=== PATIENT | male | born 1965 | race American Indian/Alaskan Native ===

== ENCOUNTER 2020-09-30 03:16 | Inpatient (IN) | payer OTHER ==
--- NOTE | 2020-09-30 03:35 | Event Note ---
Date: 09/30/20 The patient was evaluated in the emergency department for symptoms described in the history of present illness. He/she was evaluated in the context of the global COVID-19 pandemic, which necessitated consideration that the patient might be at risk for infection with the virus that causes COVID-19. Institutional protocols and algorithms that pertain to the evaluation of patients at risk for COVID-19 are in a state of rapid change based on information released by regulatory bodies including the CDC and federal and state organizations. These policies and algorithms were followed during the patient's care in the emergency department. Please note that these policies, procedures and recommendations changed on a rapid basis. The patient is a 55-year-old gentleman with a history of obesity, and CHF, possible hypertension, who reports a cardiac catheterization last year at [facility], which he states was negative for coronary artery disease, presenting to the ER today with EMS as a possible code STEMI. Patient complains of nonradiating central, intermittent chest pain, which is associated with some shortness of breath, but no vomiting or diaphoresis. He rates his pain as a 7 out of 10 at this time. He endorses lower extremity swelling and unintentional weight gain. EMS states he has not been taking his diuretic/CHF medications. EMS gave the patient aspirin in the field. Prehospital EKG shows left bundle branch block. ER EKG shows sinus tachycardia, rate 108 bpm, left bundle branch block, QTC prolonged, no evidence of STEMI in my opinion. In addition, the EKG is negative by Scarbarossa criteria However, EKG is transmitted to our local design project manager, Dr. Nunez, given EMS articulated concern of STEMI. Patient appears quite comfortable at this time. He does not appear to be in significant distress. Dr. Nunez advises that emergent activation of the cardiac catheterization lab is not indicated at this time, and I agree with him. The patient has received 1 round of COVID-19 vaccination, and is due to receive his next vaccine within the next week or so. Patient also appears to have lower extremity edema, suspect decompensated CHF. Place patient on manager monitoring, obtain x-ray, appropriate laboratory studies, treat with as needed nitroglycerin, and anticipate admission to the medical service once initial diagnostics have resulted.
[2020-09-30] MEDS ORDERED: MORPHINE 4 MG/1 ML INJ IV ONE (04:05)
--- NOTE | 2020-09-30 04:11 | Emergency Department Report ---
ED General Adult HPI - General Chief complaint: Dyspnea/Respdistress Stated complaint: My chest hurts, I will coughing, and having difficulty. PUI?: No Time Seen by Provider: 09/30/20 04:01 Source: patient, EMS (Verbal report received from emergency medical services. EMS documentation not available at time of chart dictation ), RN notes reviewed Mode of arrival: Stretcher - History of Present Illness Initial comments: The patient was evaluated in the emergency department for symptoms described in the history of present illness. He/she was evaluated in the context of the global COVID-19 pandemic, which necessitated consideration that the patient might be at risk for infection with the virus that causes COVID-19. Institutional protocols and algorithms that pertain to the evaluation of patients at risk for COVID-19 are in a state of rapid change based on information released by regulatory bodies including the CDC and federal and state organizations. These policies and algorithms were followed during the patient's care in the emergency department. Please note that these policies, procedures and recommendations changed on a rapid basis. The patient is a 55-year-old gentleman, who is not known to myself previously. Past medical history includes medication noncompliance, hypertension, congestive heart failure, unknown ejection fraction, alcohol use. Patient reports having had an unremarkable cardiac catheterization last year [facility], stating that he believes he had normal coronary arteries, but CHF. He reports that secondary to financial and insurance issues, he is not been able to take his diuretics for about a few weeks. He goes to [facility] in [place]. He has been having central chest pain, which does not radiate to the back, arms or neck, denies vomiting and diaphoresis. He has shortness of breath. He has lower extremity swelling. He has received one of his COVID-19 vaccinations. He denies hematemesis and bright red blood per rectum. Symptoms present for a day or so. He denies loss of taste and smell. EMS gave aspirin in the field. EMS states patient hypertensive in the field to the 170s systolic, improved with sublingual nitroglycerin the patient denies a personal/family history of ischemic heart disease, DVT and pulmonary embolism. -: Gradual, hour(s), days(s) Location: chest Radiation: non-radiation Consistency: intermittent Improves with: rest Worsens with: movement - Related Data Allergies Allergy/AdvReac Type Severity Reaction Status Date / Time No Known Allergies Allergy Verified 09/30/20 04:26 ED Review of Systems ROS: Stated complaint: STEMI Other details as noted in HPI Constitutional: denies: fever Eyes: denies: eye discharge ENT: congestion. denies: epistaxis Respiratory: shortness of breath Cardiovascular: chest pain, dyspnea on exertion, edema Gastrointestinal: denies: vomiting, hematemesis, melena, hematochezia Musculoskeletal: denies: back pain Neurological: weakness Hematological/Lymphatic: denies: easy bleeding ED Physical Exam - General Limitations: No Limitations General appearance: alert, anxious, in distress, obese - Head Head exam: Present: atraumatic, normocephalic - Eye Eye exam: Present: normal appearance, EOMI. Absent: nystagmus - ENT ENT exam: Present: normal exam, normal orophraynx, mucous membranes moist, normal external ear exam - Neck Neck exam: Present: normal inspection, full ROM. Absent: tenderness, meningismus - Respiratory Respiratory exam: Present: respiratory distress, rales, accessory muscle use - Cardiovascular Cardiovascular Exam: Present: normal rhythm, tachycardia, normal heart sounds, JVD. Absent: bradycardia, irregular rhythm, systolic murmur, diastolic murmur, rubs, gallop - GI/Abdominal GI/Abdominal exam: Present: soft. Absent: distended, tenderness, guarding, rebound, rigid, pulsatile mass - Rectal Rectal exam: Present: deferred - Extremities Exam Extremities exam: Present: normal inspection, full ROM, pedal edema, other (2+ pulses noted in the bilateral upper and lower extremities. There is no palpable cord. negative Homans sign. Muscular compartments are soft. The pelvis is stable.). Absent: calf tenderness - Back Exam Back exam: Present: normal inspection. Absent: tenderness, CVA tenderness (R), CVA tenderness (L), paraspinal tenderness, vertebral tenderness - Neurological Exam Neurological exam: Present: alert, oriented X3, other (No facial droop. Tongue midline. Extraocular movements intact bilaterally. Facial sensation intact to light touch in V1, V2, V3 distribution bilaterally. 5 and a 5 strength in 4 extremities. Sensation intact to light touch in 4 extremities.). Absent: motor sensory deficit - Psychiatric Psychiatric exam: Present: normal affect, normal mood - Skin Skin exam: Present: warm, dry, intact, normal color. Absent: rash ED Course Vital Signs 09/30/20 09/30/20 09/30/20 03:50 04:13 04:17 Temperature 98.6 F Pulse Rate 106 H 106 H 108 H Respiratory 22 Rate Blood Pressure 155/95 Blood Pressure 158/115 [Right] O2 Sat by Pulse 98 Oximetry - Reevaluation(s) Reevaluation #1: 09/30/20 04:09 Differential diagnosis, including but not limited to: Acute coronary syndrome, costochondritis, pneumonia, congestive heart failure, obesity, pulmonary hypertension, obesity hypoventilation syndrome Assessment and plan: 55-year-old gentleman who is morbidly obese, with evidence of decompensated congestive heart failure, manifest by crackles, rales, JVD, lower extremity swelling, and chest pain. EKG abnormal, without prior for comparison, but not consistent with STEMI. Denies DVT and pulmonary embolism risk factors. We will request prior medical records from [facility]. Place patient on fish culturist, obtain appropriate laboratory studies, x-ray of the chest, treat pain aggressively, admit patient to the medical service once initial diagnostics have resulted. I discussed this plan of care with the patient. He is agreeable to the aforementioned. He does not take erectile dysfunction medication. EMS informed me that patient's family told them that the patient is a heavy drinker. The patient denies recreational drug use to myself. He is not clinically intoxicated at this time. His examination and history are not consistent with withdrawal. 09/30/20 04:54 Troponin negative. proBNP elevated. Liver panel suggest congestive hepatopathy, likely secondary to decompensated congestive heart failure. High-dose Lasix ordered. Pain is improved with morphine and nitroglycerin. Hospital physician, Dr. Charanjit Cano, To admit patient to the medical service. ED Medical Decision Making - Lab Data Result diagrams: 09/30/20 03:44 09/30/20 03:44 Vital Signs 09/30/20 09/30/20 04:13 04:17 Pulse Rate 106 H 108 H Blood Pressure 155/95 Lab Results 09/30/20 09/30/20 09/30/20 Range/Units 03:44 03:44 03:44 WBC 8.6 (4.5-11.0) K/mm3 RBC 4.30 (3.65-5.03) M/mm3 Hgb 12.7 (11.8-15.2) gm/dl Hct 37.7 (35.5-45.6) % MCV 88 (84-94) fl MCH 30 (28-32) pg MCHC 34 (32-34) % RDW 17.3 H (13.2-15.2) % Plt Count 226 (140-440) K/mm3 Lymph % (Auto) 12.2 L (13.4-35.0) % [place] % (Auto) 6.1 (0.0-7.3) % Eos % (Auto) 0.2 (0.0-4.3) % Baso % (Auto) 1.3 (0.0-1.8) % Lymph # (Auto) 1.0 L (1.2-5.4) K/mm3 [place] # (Auto) 0.5 (0.0-0.8) K/mm3 Eos # (Auto) 0.0 (0.0-0.4) K/mm3 Baso # (Auto) 0.1 (0.0-0.1) K/mm3 Seg Neutrophils % 80.2 H (40.0-70.0) % Seg Neutrophils # 6.9 (1.8-7.7) K/mm3 PT 13.5 (12.2-14.9) Sec. INR 0.97 (0.87-1.13) APTT 25.3 (24.2-36.6) Sec. Sodium 142 (137-145) mmol/L Potassium 4.1 (3.6-5.0) mmol/L Chloride 107.0 (98-107) mmol/L Carbon Dioxide 21 L (22-30) mmol/L Anion Gap 18 mmol/L BUN 17 (9-20) mg/dL Creatinine 0.8 (0.8-1.3) mg/dL Estimated GFR > 60 ml/min BUN/Creatinine Ratio 21 % Glucose 104 H (75-100) mg/dL Calcium 9.2 (8.4-10.2) mg/dL Magnesium 2.10 (1.7-2.3) mg/dL Total Bilirubin 0.70 (0.1-1.2) mg/dL AST 54 H (5-40) units/L ALT 65 H (7-56) units/L Alkaline Phosphatase 51 (35-129) units/L Troponin T 0.014 (0.00-0.029) ng/mL NT-Pro-B Natriuret Pep 04920 H (0-900) pg/mL Total Protein 6.8 (6.3-8.2) g/dL Albumin 3.6 L (3.9-5) g/dL Albumin/Globulin Ratio 1.1 % Vital Signs 09/30/20 09/30/20 09/30/20 03:50 04:13 04:17 Temperature 98.6 F Pulse Rate 106 H 106 H 108 H Respiratory 22 Rate Blood Pressure 155/95 Blood Pressure 158/115 [Right] O2 Sat by Pulse 98 Oximetry - EKG Data -: EKG Interpreted by La - EKG Data 09/30/20 04:11 EKG interpreted at 03: 23 Sinus rhythm, tachycardia. Normal axis, QTC 457 ms. Motion artifact. Interventricular conduction delay. Left bundle branch block. Abnormal EKG. Not a STEMI. No prior for comparison. - Radiology Data Radiology results: pending, report reviewed, image reviewed [facility] [address] [place] [address] XRay Report Signed Patient: RAUL HILL MR#: [id number] 3 : 1965 Acct:[id number] Age/Sex: 55 / M ADM Date: 09/30/20 Loc: ED Attending Dr: Ordering Physician: SNEHAL DOE MD Date of Service: 09/30/20 Procedure(s): XR chest 1V ap Accession Number(s): [id number] cc: SNEHAL DOE MD Fluoro Time In Minutes: CHEST 1 VIEW 09/30/2020 4:12 AM INDICATION / CLINICAL INFORMATION: Chest Pain. COMPARISON: None available. FINDINGS: SUPPORT DEVICES: None. HEART / MEDIASTINUM: Moderate cardiomegaly. LUNGS / PLEURA: Mild interstitial edema and tiny bilateral effusions No pneumothorax. ADDITIONAL FI NDINGS: No significant additional findings. IMPRESSION: 1. Mild CHF Signer Name: Paul Lopez MD Signed: 09/30/2020 4:16 AM Workstation Name: [id number] Transcribed By: TL Dictated By: Paul Lopez MD Electronically Authenticated By: Paul Lopez MD Signed Date/Time: 08415 DD/ 5 TD/TT: Critical Care Time: Yes Critical care time in (mins) excluding proc time.: 35 Critical care attestation.: If time is entered above; I have spent that time in minutes in the direct care of this critically ill patient, excluding procedure time. ED Disposition Clinical Impression: Acute congestive heart failure, Acute chest pain, Body mass index 36.0-36.9, adult, Medical non-compliance Disposition: ADMITTED INPATIENT Is pt being admited?: Yes Does the pt Need Aspirin: No (Aspirin given by EMS) Condition: Stable Instructions: Chest Pain (ED) Referrals: PRIMARY CARE,MD [Primary Care Provider] - 3-5 Days Heart Score - HEART Score History: Moderately suspicious EKG: Non-specific Age: 45-65 Risk factors: > 3 risk factors or hx of atherosclerotic disease (Obesity, hypertension, alcoholism, probable obstructive sleep) Troponin: < normal limit HEART Score: 5 - EKG Read Time Time EKG Completed: 03:23 EKG Read Time: 03:23 - Critical Actions Critical Actions: 4-6 pts:12-16.6% risk of adverse cardiac event. Should be admitted
[2020-09-30] MEDS: NITROGLYCERIN 0.4 MG TAB SUBL SL ONE ×2 (04:13→04:17)
--- NOTE | 2020-09-30 04:20 | XRay Report ---
CHEST 1 VIEW 09/30/2020 4:12 AM INDICATION / CLINICAL INFORMATION: Chest Pain. COMPARISON: None available. FINDINGS: SUPPORT DEVICES: None. HEART / MEDIASTINUM: Moderate cardiomegaly. LUNGS / PLEURA: Mild interstitial edema and tiny bilateral effusions No pneumothorax. ADDITIONAL FINDINGS: No significant additional findings. IMPRESSION: 1. Mild CHF Signer Name: Paul Lopez MD Signed: 09/30/2020 4:16 AM Workstation Name: [id number]
[2020-09-30 04:36] LABS: Basophils # (Auto) 0.1 K/mm3 (0.0-0.1); Basophils % (Auto) 1.3 % (0.0-1.8); Eosinophils % (Auto) 0.2 % (0.0-4.3); Hematocrit 37.7 % (35.5-45.6); Hemoglobin 12.7 gm/dl (11.8-15.2); Lymphocytes % (Auto) 12.2 % (13.4-35.0); Mean Corpuscular HGB Conc 34 % (32-34); Mean Corpuscular Volume 88 fl (84-94); Monocytes # (Auto) 0.5 K/mm3 (0.0-0.8); Monocytes % (Auto) 6.1 % (0.0-7.3); Platelet Count 226 K/mm3 (140-440); Red Cell Distribution Width 17.3 % (13.2-15.2)
[2020-09-30 04:47] LABS: INR 0.97 (0.87-1.13); Partial Thromboplastin Time 25.3 Sec. (24.2-36.6)
[2020-09-30 04:53] LABS: Alanine Aminotransferase 65 units/L (7-56); Albumin 3.6 g/dL (3.9-5); BUN/Creatinine Ratio 21; Blood Urea Nitrogen 17 mg/dL (9-20); Calcium 9.2 mg/dL (8.4-10.2); Hemolysis Index 4
[2020-09-30] MEDS ORDERED: FUROSEMIDE 40 MG/4 ML INJ IV ONE (04:57)
[2020-09-30] MEDS ORDERED: NITROGLYCERIN 0.4 MG TAB SUBL SL PRN (05:05)
[2020-09-30] MEDS ORDERED: ACETAMINOPHEN 325 MG TAB PO PRN ×2 (05:05)
[2020-09-30] MEDS ORDERED: ONDANSETRON 4 MG/2 ML INJ IV PRN (05:05)
[2020-09-30] MEDS ORDERED: traMADol 50 MG TAB PO PRN (05:05)
[2020-09-30] MEDS ORDERED: MORPHINE 4 MG/1 ML INJ IV PRN (05:05)
[2020-09-30] MEDS ORDERED: MORPHINE 2 MG/1 ML INJ IV PRN ×2 (05:05)
[2020-09-30] MEDS ORDERED: MAGNESIUM HYDROXIDE (MOM) ORAL LIQD UDC PO PRN (05:05)
--- NOTE | 2020-09-30 05:15 | History and Physical Report ---
History of Present Illness Date of examination: 09/30/20 Date of admission: 09/30/2020 Chief complaint: Chest pain Shortness of breath History of present illness: 55-year-old -[place] male with known history of hypertension and CHF presents to the emergency today complaining of chest pain shortness of breath which has been ongoing for the past few days. Patient admits that he has not been taking his medication because he could no get refills secondary to insurance issues. Chest pain is said to be substernal and has been constant with no radiation. Denies any headache or dizziness, no diaphoresis, no nausea vomiting, no abdominal pain. Patient denies any sick contacts and no recent travel. Denies any contact with anyone with COVID-19. He has had a dose of COVID-19 vaccine and due for second dose in the next few weeks. Patient indicates that he has had cardiac catheterization about a year ago at [facility] with no significant abnormalities detected. En route to the hospital by EMS he was given aspirin with some improvement in his chest pain. Initial blood pressure was said to be in the 170s systolic. Patient states his mother has known history of heart disease namely congestive heart failure. Evaluation in the emergency room today, chest x-ray reveals mild CHF. BNP was greater than 10,000. EKG was a little concerning for left bundle branch block. EKG findings were discussed with the data processing systems project planner on-call by the ER physician. No emergent intervention was required. Patient is being admitted with chest pain and CHF exacerbation. Past History Past Medical History: heart failure, hypertension Past Surgical History: Other (Cardiac catheterization about a year ago) Social history: denies: no significant social history Family history: no significant family history, other (Congestive heart failure in mother) Medications and Allergies Allergies Allergy/AdvReac Type Severity Reaction Status Date / Time No Known Allergies Allergy Verified 09/30/20 04:26 Review of Systems Constitutional: no fever, no chills Ears, nose, mouth and throat: no nasal congestion, no sore throat Cardiovascular: chest pain, no palpitations, no syncope Respiratory: shortness of breath, no cough Gastrointestinal: no abdominal pain, no nausea, no vomiting, no diarrhea Genitourinary Male: no dysuria, no hematuria, no flank pain Musculoskeletal: no neck pain, no low back pain Integumentary: no rash, no pruritis Neurological: no headaches, no confusion Psychiatric: no anxiety, no depression Endocrine: no polyphagia, no polydipsia, no polyuria, no nocturia Exam - Constitutional Vitals: Temp Pulse Resp BP Pulse Ox 98.6 F 108 H 22 155/95 98 09/30/20 03:50 09/30/20 04:17 09/30/20 03:50 09/30/20 04:17 09/30/20 03:50 General appearance: Present: no acute distress, well-nourished, obese - EENT Eyes: Present: PERRL, EOM intact ENT: hearing intact, clear oral mucosa, dentition normal - Neck Neck: Present: supple, normal ROM - Respiratory Respiratory effort: normal Respiratory: bilateral: rales - Cardiovascular Rhythm: regular Heart Sounds: Present: S1 & S2. Absent: gallop, systolic murmur, diastolic murmur, rub, click - Extremities Extremities: no ischemia, pulses intact, pulses symmetrical, normal temperature, normal color, Full ROM Extremity abnormal: edema (2+ bilateral lower extremity edema) Peripheral Pulses: within normal limits - Abdominal General gastrointestinal: Present: soft, non-tender, non-distended, normal bowel sounds. Absent: mass - Integumentary Integumentary: Present: clear, warm, dry, normal turgor. Absent: rash - Musculoskeletal Musculoskeletal: strength equal bilaterally - Psychiatric Psychiatric: appropriate mood/affect, intact judgment & insight, memory intact, cooperative - Neurologic Neurologic: CNII-XII intact, no focal deficits, moves all extremities HEART Score - HEART Score History: Moderately suspicious EKG: Non-specific Age: 45-65 Risk factors: > 3 risk factors or hx of atherosclerotic disease (Obesity, hypertension, alcoholism, probable obstructive sleep) Troponin: Troponin T 0.014 ng/mL (0.00-0.029) 09/30/20 03:44 Troponin: < normal limit HEART Score: 5 - Critical Actions Critical Actions: 4-6 pts:12-16.6% risk of adverse cardiac event. Should be admitted Results - Labs CBC & Chem 7: 09/30/20 03:44 09/30/20 03:44 Labs: Abnormal lab results 09/30/20 09/30/20 Range/Units 03:44 03:44 RDW 17.3 H (13.2-15.2) % Lymph % (Auto) 12.2 L (13.4-35.0) % Lymph # (Auto) 1.0 L (1.2-5.4) K/mm3 Seg Neutrophils % 80.2 H (40.0-70.0) % Carbon Dioxide 21 L (22-30) mmol/L Glucose 104 H (75-100) mg/dL AST 54 H (5-40) units/L ALT 65 H (7-56) units/L NT-Pro-B Natriuret Pep 36116 H (0-900) pg/mL Albumin 3.6 L (3.9-5) g/dL Assessment and Plan - Patient Problems (1) Acute congestive heart failure Current Visit: Yes Status: Acute Plan to address problem: Possibly secondary to medication noncompliance. Patient admitted and placed on telemetry. Started on diuretics. We will monitor daily weights and also monitor inputs and output. Patient will be scheduled for echocardiogram. We will request cardiology evaluation. (2) Acute chest pain Current Visit: Yes Status: Acute Plan to address problem: We will check serial cardiac enzymes. Patient started on daily aspirin. Patient placed on sublingual nitroglycerin and IV morphine as needed for chest pain. Will await further evaluation by cardiology (3) Medical non-compliance Current Visit: Yes Status: Acute Plan to address problem: Compliance with medication is being encouraged. (4) DVT prophylaxis Current Visit: Yes Status: Acute Plan to address problem: Patient placed on subcutaneous heparin. (5) Full code status Current Visit: Yes Status: Acute Plan to address problem: Patient is full code.
[2020-09-30] MEDS: FUROSEMIDE 40 MG/4 ML INJ IV SCH ×2 (06:07→19:31)
[2020-09-30] MEDS: HEPARIN 5,000 UNIT/1 ML VIAL SUB-Q SCH ×3 (06:07→22:01)
[2020-09-30] MEDS ORDERED: REGADENOSON 0.4 MG/5 ML INJ IV ONE ×2 (09:27→09:32)
--- NOTE | 2020-09-30 10:04 | Consultation ---
History of Present Illness Consult date: 09/30/20 Consult reason: congestive heart failure History of present illness: The patient is a 55-year-old man who presented to the hospital yesterday with chest pressure and shortness of breath, was seen in the emergency room, admitted to the hospitalist service. He was evaluated and referred for a stress test evaluation today, Lexiscan stress test was completed, following which cardiology consultation was requested. The patient has a history of dilated cardiomyopathy and systolic heart failure, which is managed by his primary doctors at [facility]. He tells me that last year he underwent cardiac catheterization which demonstrated no significant coronary artery disease, and he was placed on medical therapy for a nonischemic cardiomyopathy. He admits to poor compliance with his medical therapy, and poor compliance with recommended dietary salt restrictions, and he is aware that his current decompensation was the result of his noncompliance. He does not recall his last ejection fraction measurement, and has not had any conversations with his doctors about ICD implantation, but also admits to spotty compliance with outpatient doctor visits. At this time, the patient has mild shortness of breath, up to 2+ bilateral lower extremity edema, clinically in decompensated heart failure. EKG is a sinus rhythm with underlying left bundle branch block. Chest x-ray shows a moderate to severe cardiomegaly, and mild interstitial edema. Past History Past Medical History: heart failure, hypertension Past Surgical History: Other (Cardiac catheterization about a year ago) Social history: denies: no significant social history Family history: no significant family history, other (Congestive heart failure in mother) Medications and Allergies Allergies Allergy/AdvReac Type Severity Reaction Status Date / Time No Known Allergies Allergy Verified 09/30/20 04:26 Active Meds: Active Medications Acetaminophen (Acetaminophen 325 Mg Tab) 650 mg PO Q4H PRN PRN Reason: Pain MILD(1-3)/Fever >100.5/YARBROUGH Aspirin (Aspirin Ec 325 Mg Tab) 325 mg PO QDAY [facility] Furosemide (Furosemide 40 Mg/4 Ml Inj) 40 mg IV BID@0600,1800 [facility] Last Admin: 09/30/20 06:07 Dose: Not Given Documented by: Heparin Sodium (Porcine) (Heparin 5,000 Unit/1 Ml Vial) 5,000 unit SUB-Q Q8HR [facility] Last Admin: 09/30/20 06:07 Dose: Not Given Documented by: Magnesium Hydroxide (Magnesium Hydroxide (Mom) Oral Liqd Udc) 30 ml PO Q4H PRN PRN Reason: Constipation Morphine Sulfate (Morphine 2 Mg/1 Ml Inj) 2 mg IV Q4H PRN PRN Reason: Pain, Moderate (4-6) Morphine Sulfate (Morphine 4 Mg/1 Ml Inj) 4 mg IV Q4H PRN PRN Reason: Pain , Severe (7-10) Morphine Sulfate (Morphine 2 Mg/1 Ml Inj) 2 mg IV Q5MIN PRN PRN Reason: Chest Pain unrelieved by NTG Nitroglycerin (Nitroglycerin 0.4 Mg Tab Subl) 0.4 mg SL Q5M PRN PRN Reason: Chest Pain Ondansetron HCl (Ondansetron 4 Mg/2 Ml Inj) 4 mg IV Q8H PRN PRN Reason: Nausea And Vomiting Sodium Chloride (Sodium Chloride 0.9% 10 Ml Flush Syringe) [address] Sodium Chloride (Sodium Chloride 0.9% 10 Ml Flush Syringe) 10 ml IV PRN PRN PRN Reason: LINE FLUSH Tramadol HCl (Tramadol 50 Mg Tab) 50 mg PO Q6H PRN PRN Reason: Pain, Moderate (4-6) Review of Systems Cardiovascular: chest pain, orthopnea, edema, shortness of breath, no palpitations, no rapid/irregular heart beat, no syncope, no lightheadedness Physical Examination Vital Signs Temp Pulse Resp BP Pulse Ox 98.6 F 106 H 22 158/115 98 09/30/20 03:50 09/30/20 03:50 09/30/20 03:50 09/30/20 03:50 09/30/20 03:50 General appearance: mild distress HEENT: Positive: PERRL Neck: Positive: neck supple Cardiac: Positive: Reg Rate and Rhythm Lungs: Positive: Decreased Breath Sounds Neuro: Positive: Grossly Intact Abdomen: Positive: Soft Male genitourinary: Positive: deferred Skin: Positive: Clear Extremities: Present: +2 Edema Results 09/30/20 03:44 09/30/20 03:44 Cardiac Enzymes 09/30/20 Range/Units 03:44 AST 54 H (5-40) units/L Coagulation 09/30/20 Range/Units 03:44 PT 13.5 (12.2-14.9) Sec. INR 0.97 (0.87-1.13) APTT 25.3 (24.2-36.6) Sec. CBC 09/30/20 Range/Units 03:44 WBC 8.6 (4.5-11.0) K/mm3 RBC 4.30 (3.65-5.03) M/mm3 Hgb 12.7 (11.8-15.2) gm/dl Hct 37.7 (35.5-45.6) % Plt Count 226 (140-440) K/mm3 Lymph # (Auto) 1.0 L (1.2-5.4) K/mm3 Reynolds # (Auto) 0.5 (0.0-0.8) K/mm3 Eos # (Auto) 0.0 (0.0-0.4) K/mm3 Baso # (Auto) 0.1 (0.0-0.1) K/mm3 Comprehensive Metabolic Panel 09/30/20 Range/Units 03:44 Sodium 142 (137-145) mmol/L Potassium 4.1 (3.6-5.0) mmol/L Chloride 107.0 (98-107) mmol/L Carbon Dioxide 21 L (22-30) mmol/L BUN 17 (9-20) mg/dL Creatinine 0.8 (0.8-1.3) mg/dL Glucose 104 H (75-100) mg/dL Calcium 9.2 (8.4-10.2) mg/dL AST 54 H (5-40) units/L ALT 65 H (7-56) units/L Alkaline Phosphatase 51 (35-129) units/L Total Protein 6.8 (6.3-8.2) g/dL Albumin 3.6 L (3.9-5) g/dL EKG interpretations - Telemetry EKG Rhythm: Sinus Rhythm (With left bundle branch block) Assessment and Plan - Patient Problems (1) Acute on chronic systolic heart failure Current Visit: Yes Status: Acute Plan to address problem: This patient's current problem is acute exacerbation of chronic systolic heart failure, with a history of dilated nonischemic cardiomyopathy and noncompliance with medical therapy, recommended dietary salt restrictions, and with routine recommended outpatient doctors visits. He states that he is unable to afford his medications and doctor visits. Recommendations: Echocardiogram for left ventricular function assessment. Aggressive management of acute heart failure, with intravenous diuretics, and intravenous milrinone. Other guideline directed medical therapy including lisinopril, spironolactone, baby aspirin, and addition of carvedilol when heart failure is compensated. Strict compliance with low-salt diet. I would also recommend social service worker consultation to develop strategies for patient assistance with outpatient medical compliance.
--- NOTE | 2020-09-30 10:40 | Progress Note ---
Assessment and Plan Assessment and plan: Acute on chronic systolic heart failure. Chest pain. Nonischemic dilated cardiomyopathy. Medical noncompliance. 09/30/2020. Follow-up echocardiogram to assess left ventricular function. Continue GDMT for heart failure with lisinopril, spironolactone, aspirin and Coreg. Continue IV diuretics/IV milrinone. Cardiology following. Ischemic evaluation per cardiology recommendations History Interval history: No new issues overnight. Hospitalist Physical - Constitutional Vitals: Temp Pulse Resp BP Pulse Ox 98.6 F 103 H 21 150/99 96 09/30/20 03:50 09/30/20 06:31 09/30/20 07:01 09/30/20 07:01 09/30/20 07:01 General appearance: Present: mild distress - EENT Eyes: Present: PERRL, EOM intact ENT: hearing intact, clear oral mucosa, dentition normal - Neck Neck: Present: supple, normal ROM - Respiratory Respiratory effort: normal Respiratory: bilateral: CTA - Cardiovascular Rhythm: regular Heart Sounds: Present: S1 & S2. Absent: gallop, rub - Extremities Extremities: no ischemia, Full ROM Extremity abnormal: edema (3+) - Abdominal General gastrointestinal: soft, non-tender, non-distended, normal bowel sounds - Integumentary Integumentary: Present: clear, warm, dry - Neurologic Neurologic: CNII-XII intact, moves all extremities HEART Score - HEART Score EKG: Non-specific Age: 45-65 Risk factors: > 3 risk factors or hx of atherosclerotic disease (Obesity, hypertension, alcoholism, probable obstructive sleep) Troponin: Troponin T 0.014 ng/mL (0.00-0.029) 09/30/20 03:44 Troponin: < normal limit - Critical Actions Critical Actions: 4-6 pts:12-16.6% risk of adverse cardiac event. Should be admitted Results - Labs CBC & Chem 7: 09/30/20 03:44 09/30/20 03:44 Labs: Laboratory Last Values WBC 8.6 K/mm3 (4.5-11.0) 09/30/20 03:44 RBC 4.30 M/mm3 (3.65-5.03) 09/30/20 03:44 Hgb 12.7 gm/dl (11.8-15.2) 09/30/20 03:44 Hct 37.7 % (35.5-45.6) 09/30/20 03:44 MCV 88 fl (84-94) 09/30/20 03:44 MCH 30 pg (28-32) 09/30/20 03:44 MCHC 34 % (32-34) 09/30/20 03:44 RDW 17.3 % (13.2-15.2) H 09/30/20 03:44 Plt Count 226 K/mm3 (140-440) 09/30/20 03:44 Lymph % (Auto) 12.2 % (13.4-35.0) L 09/30/20 03:44 Grady % (Auto) 6.1 % (0.0-7.3) 09/30/20 03:44 Eos % (Auto) 0.2 % (0.0-4.3) 09/30/20 03:44 Baso % (Auto) 1.3 % (0.0-1.8) 09/30/20 03:44 Lymph # (Auto) 1.0 K/mm3 (1.2-5.4) L 09/30/20 03:44 Grady # (Auto) 0.5 K/mm3 (0.0-0.8) 09/30/20 03:44 Eos # (Auto) 0.0 K/mm3 (0.0-0.4) 09/30/20 03:44 Baso # (Auto) 0.1 K/mm3 (0.0-0.1) 09/30/20 03:44 Seg Neutrophils % 80.2 % (40.0-70.0) H 09/30/20 03:44 Seg Neutrophils # 6.9 K/mm3 (1.8-7.7) 09/30/20 03:44 PT 13.5 Sec. (12.2-14.9) 09/30/20 03:44 INR 0.97 (0.87-1.13) 09/30/20 03:44 APTT 25.3 Sec. (24.2-36.6) 09/30/20 03:44 Sodium 142 mmol/L (137-145) 09/30/20 03:44 Potassium 4.1 mmol/L (3.6-5.0) 09/30/20 03:44 Chloride 107.0 mmol/L (98-107) 09/30/20 03:44 Carbon Dioxide 21 mmol/L (22-30) L 09/30/20 03:44 Anion Gap 18 mmol/L 09/30/20 03:44 BUN 17 mg/dL (9-20) 09/30/20 03:44 Creatinine 0.8 mg/dL (0.8-1.3) 09/30/20 03:44 Estimated GFR > 60 ml/min 09/30/20 03:44 BUN/Creatinine Ratio 21 % 09/30/20 03:44 Glucose 104 mg/dL (75-100) H 09/30/20 03:44 Calcium 9.2 mg/dL (8.4-10.2) 09/30/20 03:44 Magnesium 2.10 mg/dL (1.7-2.3) 09/30/20 03:44 Total Bilirubin 0.70 mg/dL (0.1-1.2) 09/30/20 03:44 AST 54 units/L (5-40) H 09/30/20 03:44 ALT 65 units/L (7-56) H 09/30/20 03:44 Alkaline Phosphatase 51 units/L (35-129) 09/30/20 03:44 Troponin T 0.014 ng/mL (0.00-0.029) 09/30/20 03:44 NT-Pro-B Natriuret Pep 68606 pg/mL (0-900) H 09/30/20 03:44 Total Protein 6.8 g/dL (6.3-8.2) 09/30/20 03:44 Albumin 3.6 g/dL (3.9-5) L 09/30/20 03:44 Albumin/Globulin Ratio 1.1 % 09/30/20 03:44 Active Medications - Current Medications Current Medications: Generic Name Dose Route Start Last Admin Trade Name Freq PRN Reason Stop Dose Admin Acetaminophen 650 mg 09/30/20 05:05 Acetaminophen 325 Mg Tab PO Q4H PRN Pain MILD(1-3)/Fever >100.5/YARBROUGH Aspirin 81 mg 10/01/20 10:00 Aspirin Ec 81 Mg Tab PO QDAY RD Carvedilol 6.25 mg 09/30/20 10:00 Carvedilol 6.25 Mg Tab PO BID RD Furosemide 40 mg 09/30/20 06:00 09/30/20 06:07 Furosemide 40 Mg/4 Ml Inj IV Not Given BID@0600,1800 [facility] Heparin Sodium (Porcine) 5,000 unit 09/30/20 06:00 09/30/20 06:07 Heparin 5,000 Unit/1 Ml Vial SUB-Q Not Given Q8HR [facility] Milrinone Lactate/Dextrose 20 mg in 100 mls @ 13.778 mls/hr 09/30/20 11:00 Milrinone-D5w 20 Mg/100 Ml IV 10/03/20 10:[address] Protocol 0.375 MCG/KG/MIN Lisinopril 10 mg 09/30/20 10:00 Lisinopril 10 Mg Tab PO QDAY [facility] Magnesium Hydroxide 30 ml 09/30/20 05:05 Magnesium Hydroxide (Mom) Oral Liqd Udc PO Q4H PRN Constipation Morphine Sulfate 2 mg 09/30/20 05:05 Morphine 2 Mg/1 Ml Inj IV Q4H PRN Pain, Moderate (4-6) Morphine Sulfate 4 mg 09/30/20 05:05 Morphine 4 Mg/1 Ml Inj IV Q4H PRN Pain , Severe (7-10) Morphine Sulfate 2 mg 09/30/20 05:05 Morphine 2 Mg/1 Ml Inj IV Q5MIN PRN Chest Pain unrelieved by NTG Nitroglycerin 0.4 mg 09/30/20 05:05 Nitroglycerin 0.4 Mg Tab Subl SL Q5M PRN Chest Pain Ondansetron HCl 4 mg 09/30/20 05:05 Ondansetron 4 Mg/2 Ml Inj IV Q8H PRN Nausea And Vomiting Sodium Chloride 10 ml 09/30/20 10:00 Sodium Chloride 0.9% 10 Ml Flush Syringe IV BID RD Sodium Chloride 10 ml 09/30/20 05:05 Sodium Chloride 0.9% 10 Ml Flush Syringe IV PRN PRN LINE FLUSH Spironolactone 25 mg 09/30/20 10:00 Spironolactone 25 Mg Tab PO QDAY [facility] Tramadol HCl 50 mg 09/30/20 05:05 Tramadol 50 Mg Tab PO Q6H PRN Pain, Moderate (4-6)
--- NOTE | 2020-09-30 12:08 | Nuclear Medicine Report ---
APPROVED REPORT Exam: Nuclear Stress Test Indication: Chest pain Ht: 5 ft 11 in Wt: 280 lbs BSA: 2.43 m2 BMI: 39.04 Rhythm: LBBB Stress Test Details Stress Test: Pharmacologic stress testing performed using 0.4 mg of regadenoson per 5 mL given IV over 10 seconds. HR Resting HR: 97 bpm Max HR Achieved: 107 bpm Max Heart Rate (APMHR): 163 bpm Target HR (85% APMHR): 138 bpm % of APMHR: 65 Recovery HR: 102 bpm HR response to stress: Normal HR response to stress BP Resting BP: 132/90 mmHg Max BP: 107/102 mmHg Recovery BP: 142/94 mmHg BP response to stress: Normal blood pressure response to stress. ECG Resting ECG: Sinus Tachycardia, LBBB Stress ECG: Sinus Tachycardia, LBBB ST Change: None Arrhythmia: None Recovery ECG: Sinus Tachycardia, LBBB Recovery ST Change: None Recovery Arrhythmia: VPC Clinical Reason for Termination: Completed protocol Stress Symptoms: None Patient completed pharmacologic stress test, no symptoms of chest pain or shortness of breath, ECG is indeterminate in the presence of a left bundle branch block. Myocardial perfusion images are pending for final test interpretation. NM EXAM: Myocardial Perfusion REST/STRESS Imaging Protocol: Rest Tc-99m/Stress Tc-99m 1 day Resting Data Rest SPECT myocardial perfusion imaging was performed in supine position 45 minutes following the intravenous injection of 10 mCi of Tc-99m Myoview. Time of rest injection: 0700 Pharmacologic Stress Pharmacologic stress test was performed by injecting Regadenoson 0.4 mg IV push followed by the intravenous injection of 28 mCi of Tc-99m Myoview. Time of stress injection: 0900 The images were gated to evaluate regional wall motion and calculate left ventricular ejection fraction. Stress only was performed in the Supine position. Study Data TID = 1.07. Perfusion Wall Motion There is diffuse severe hypokinesis, with left ventricular ejection fraction calculated at 13%. Nuclear Conclusion ECG Findings: negative for ischemia Clinical Findings: negative for ischemia Nuclear Findings: negative for ischemia Left Ventricular Function: abnormal Risk Study: moderate Evidence of severe dilated cardiomyopathy, with multiple fixed defects in the anterior apical wall and the mid and basal inferior cruz. Clinical correlation is recommended, consider multivessel disease with prior infarcts as described. There is minimal to no significant reversibility in the infarct segments.
[2020-09-30] MEDS: ASPIRIN EC 81 MG TAB PO SCH (12:39)
[2020-09-30] MEDS: carvediloL 6.25 MG TAB PO SCH ×2 (13:49→22:00)
[2020-09-30] MEDS: SPIRONOLACTONE 25 MG TAB PO SCH (13:50)
[2020-09-30] MEDS: LISINOPRIL 10 MG TAB PO SCH (13:50)
[2020-09-30] MEDS: MILRINONE-D5W 20 MG/100 ML 20 MG/100 ML BAG IV SCH (16:30)
--- NOTE | 2020-09-30 17:45 | Electrocardiograph Report ---
[facility] Test Date: 2020-09-30 Test Time: 03:23:40 Pat Name: RAUL HILL Department: Room: [place] [address] Gender: M [employer] Examiner: : 1965 Requested By: SNEHAL DOE Order Number: [id number] Reading MD: Lacey Redmond Measurements Intervals [place] Rate: 108 P: 60 UT: 137 QRS: 15 QRSD: 170 T: 175 QT: 408 QTc: 547 Interpretive Statements Sinus tachycardia Left bundle branch block ST elevation secondary to IVCD No previous ECG available for comparison Electronically Signed On 09-30-2020 17:45:33 EDT by Lacey Redmond
[2020-10-01] MEDS: FUROSEMIDE 40 MG/4 ML INJ IV SCH ×2 (05:09→17:18)
[2020-10-01] MEDS: HEPARIN 5,000 UNIT/1 ML VIAL SUB-Q SCH ×3 (05:09→22:45)
[2020-10-01 05:43] LABS: Basophils % (Auto) 0.3 % (0.0-1.8); Eosinophils % (Auto) 0.7 % (0.0-4.3); Hematocrit 36.8 % (35.5-45.6); Hemoglobin 12.1 gm/dl (11.8-15.2); Lymphocytes % (Auto) 19.7 % (13.4-35.0); Mean Corpuscular HGB Conc 33 % (32-34); Mean Corpuscular Volume 90 fl (84-94); Monocytes # (Auto) 0.6 K/mm3 (0.0-0.8); Monocytes % (Auto) 12.8 % (0.0-7.3); Platelet Count 167 K/mm3 (140-440); Red Blood Count 4.11 M/mm3 (3.65-5.03); Red Cell Distribution Width 17.2 % (13.2-15.2)
[2020-10-01 06:00] LABS: BUN/Creatinine Ratio 26; Blood Urea Nitrogen 21 mg/dL (9-20); Calcium 8.6 mg/dL (8.4-10.2); Hemolysis Index 22
[2020-10-01] MEDS: MILRINONE-D5W 20 MG/100 ML 20 MG/100 ML BAG IV SCH ×3 (07:24→20:35)
--- NOTE | 2020-10-01 08:45 | Progress Note ---
Assessment and Plan Assessment and plan: Acute on chronic combined systolic and diastolic heart failure. EF 15 to 20% Severe pulmonary hypertension. RVSP 65-70 mmHg Acute hypoxic respiratory failure. Etiology secondary to above Nonischemic dilated cardiomyopathy. Medical noncompliance. 09/30/2020. Follow-up echocardiogram to assess left ventricular function. Continue GDMT for heart failure with lisinopril, spironolactone, aspirin and Coreg. Continue IV diuretics/IV milrinone. Cardiology following. Ischemic evaluation per cardiology recommendations 10/01/2020. Echocardiogram revealed left ventricular dilatation with ventricular systolic function severely decreased. Mild to moderate concentric left ventricular hypertrophy with EF of 15 to 20%. The patient also has severe pulmonary hypertension with RVSP 65-70 mmHg. Continue aspirin, Coreg, Lasix 40 mg IV twice daily, Zestril and milrinone per cardiology recommendations. Continue O2 supplementation to maintain sats greater than 92% History Interval history: No new issues overnight. Hospitalist Physical - Constitutional Vitals: Temp Pulse Resp BP Pulse Ox 98.3 F 90 20 124/83 98 10/01/20 05:32 10/01/20 05:32 10/01/20 05:32 10/01/20 05:32 10/01/20 05:32 General appearance: Present: mild distress - EENT Eyes: Present: PERRL, EOM intact ENT: hearing intact, clear oral mucosa, dentition normal - Neck Neck: Present: supple, normal ROM - Respiratory Respiratory effort: normal Respiratory: bilateral: CTA - Cardiovascular Rhythm: regular Heart Sounds: Present: S1 & S2. Absent: gallop, rub - Extremities Extremities: no ischemia, No edema, Full ROM - Abdominal General gastrointestinal: soft, non-tender, non-distended, normal bowel sounds - Integumentary Integumentary: Present: clear, warm, dry - Neurologic Neurologic: CNII-XII intact, moves all extremities HEART Score - HEART Score EKG: Non-specific Age: 45-65 Risk factors: > 3 risk factors or hx of atherosclerotic disease (Obesity, hypertension, alcoholism, probable obstructive sleep) Troponin: Troponin T < 0.010 ng/mL (0.00-0.029) 09/30/20 11:41 Troponin: < normal limit - Critical Actions Critical Actions: 4-6 pts:12-16.6% risk of adverse cardiac event. Should be admitted Results - Labs CBC & Chem 7: 10/01/20 04:35 10/01/20 04:35 Labs: Laboratory Last Values WBC 5.0 K/mm3 (4.5-11.0) 10/01/20 04:35 RBC 4.11 M/mm3 (3.65-5.03) 10/01/20 04:35 Hgb 12.1 gm/dl (11.8-15.2) 10/01/20 04:35 Hct 36.8 % (35.5-45.6) 10/01/20 04:35 MCV 90 fl (84-94) 10/01/20 04:35 MCH 30 pg (28-32) 10/01/20 04:35 MCHC 33 % (32-34) 10/01/20 04:35 RDW 17.2 % (13.2-15.2) H 10/01/20 04:35 Plt Count 167 K/mm3 (140-440) 10/01/20 04:35 Lymph % (Auto) 19.7 % (13.4-35.0) 10/01/20 04:35 Moore % (Auto) 12.8 % (0.0-7.3) H 10/01/20 04:35 Eos % (Auto) 0.7 % (0.0-4.3) 10/01/20 04:35 Baso % (Auto) 0.3 % (0.0-1.8) 10/01/20 04:35 Lymph # (Auto) 1.0 K/mm3 (1.2-5.4) L 10/01/20 04:35 Moore # (Auto) 0.6 K/mm3 (0.0-0.8) 10/01/20 04:35 Eos # (Auto) 0.0 K/mm3 (0.0-0.4) 10/01/20 04:35 Baso # (Auto) 0.0 K/mm3 (0.0-0.1) 10/01/20 04:35 Seg Neutrophils % 66.5 % (40.0-70.0) 10/01/20 04:35 Seg Neutrophils # 3.3 K/mm3 (1.8-7.7) 10/01/20 04:35 PT 13.5 Sec. (12.2-14.9) 09/30/20 03:44 INR 0.97 (0.87-1.13) 09/30/20 03:44 APTT 25.3 Sec. (24.2-36.6) 09/30/20 03:44 Sodium 140 mmol/L (137-145) 10/01/20 04:35 Potassium 3.7 mmol/L (3.6-5.0) 10/01/20 04:35 Chloride 101.5 mmol/L (98-107) 10/01/20 04:35 Carbon Dioxide 26 mmol/L (22-30) 10/01/20 04:35 Anion Gap 16 mmol/L 10/01/20 04:35 BUN 21 mg/dL (9-20) H 10/01/20 04:35 Creatinine 0.8 mg/dL (0.8-1.3) 10/01/20 04:35 Estimated GFR > 60 ml/min 10/01/20 04:35 BUN/Creatinine Ratio 26 % 10/01/20 04:35 Glucose 91 mg/dL (75-100) 10/01/20 04:35 Calcium 8.6 mg/dL (8.4-10.2) 10/01/20 04:35 Magnesium 2.10 mg/dL (1.7-2.3) 09/30/20 03:44 Total Bilirubin 0.70 mg/dL (0.1-1.2) 09/30/20 03:44 AST 54 units/L (5-40) H 09/30/20 03:44 ALT 65 units/L (7-56) H 09/30/20 03:44 Alkaline Phosphatase 51 units/L (35-129) 09/30/20 03:44 Troponin T < 0.010 ng/mL (0.00-0.029) 09/30/20 11:41 NT-Pro-B Natriuret Pep 12021 pg/mL (0-900) H 09/30/20 03:44 Total Protein 6.8 g/dL (6.3-8.2) 09/30/20 03:44 Albumin 3.6 g/dL (3.9-5) L 09/30/20 03:44 Albumin/Globulin Ratio 1.1 % 09/30/20 03:44 Cotton/IV: Voiding Method Toilet Active Medications - Current Medications Current Medications: Generic Name Dose Route Start Last Admin Trade Name Freq PRN Reason Stop Dose Admin Acetaminophen 650 mg 09/30/20 05:05 Acetaminophen 325 Mg Tab PO Q4H PRN Pain MILD(1-3)/Fever >100.5/YARBROUGH Aspirin 81 mg 09/30/20 11:00 09/30/20 12:39 Aspirin Ec 81 Mg Tab PO Not Given QDAY RD Carvedilol 6.25 mg 09/30/20 10:00 09/30/20 22:00 Carvedilol 6.25 Mg Tab PO 6.[address] Administration Furosemide 40 mg 09/30/20 06:00 10/01/20 05:09 Furosemide 40 Mg/4 Ml Inj IV 40 mg BID@0600,1800 RD Administration Heparin Sodium (Porcine) 5,000 unit 09/30/20 06:00 10/01/20 05:09 Heparin 5,000 Unit/1 Ml Vial SUB-Q 5,[address] Administration Milrinone Lactate/Dextrose 20 mg in 100 mls @ 13.778 mls/hr 09/30/20 12:00 10/01/20 07:24 Milrinone-D5w 20 Mg/100 Ml IV 10/03/20 11:59 0.375 mcg/kg/min DIRECT RD 13.778 mls/hr Administration Protocol 0.375 MCG/KG/MIN Lisinopril 10 mg 09/30/20 10:00 09/30/20 13:50 Lisinopril 10 Mg Tab PO [address] Administration Magnesium Hydroxide 30 ml 09/30/20 05:05 Magnesium Hydroxide (Mom) Oral Liqd Udc PO Q4H PRN Constipation Morphine Sulfate 2 mg 09/30/20 05:05 Morphine 2 Mg/1 Ml Inj IV Q4H PRN Pain, Moderate (4-6) Morphine Sulfate 4 mg 09/30/20 05:05 09/30/20 07:50 Morphine 4 Mg/1 Ml Inj IV 4 mg Q4H PRN Administration Pain , Severe (7-10) Morphine Sulfate 2 mg 09/30/20 05:05 Morphine 2 Mg/1 Ml Inj IV Q5MIN PRN Chest Pain unrelieved by NTG Nitroglycerin 0.4 mg 09/30/20 05:05 Nitroglycerin 0.4 Mg Tab Subl SL Q5M PRN Chest Pain Ondansetron HCl 4 mg 09/30/20 05:05 Ondansetron 4 Mg/2 Ml Inj IV Q8H PRN Nausea And Vomiting Sodium Chloride 10 ml 09/30/20 10:00 09/30/20 22:01 Sodium Chloride 0.9% 10 Ml Flush Syringe IV [address] Administration Sodium Chloride 10 ml 09/30/20 05:05 Sodium Chloride 0.9% 10 Ml Flush Syringe IV PRN PRN LINE FLUSH Spironolactone 25 mg 09/30/20 10:00 09/30/20 13:50 Spironolactone 25 Mg Tab PO [address] Administration Tramadol HCl 50 mg 09/30/20 05:05 Tramadol 50 Mg Tab PO Q6H PRN Pain, Moderate (4-6)
--- NOTE | 2020-10-01 09:14 | Progress Note ---
Assessment and Plan Chest pain, atypical Acute systolic heart failure Hx of dilated cardiomyopathy, nonischemic follows with [facility] LVEF 15-20% by echo this admission. [facility] 07/2019: angiographically normal coronary arteries, EF 20-25%. Left bundle branch block Check weight daily; strict I's and O's. Advised low sodium diet and fluid restriction. Continue aggressive medical therapy for systolic heart failure. Subjective Date of service: 10/01/20 Interval history: IV milrinone continues. BP is stable. Pt reports he breathing is improving. No cardiac events seen on telemetry. Objective Vital Signs Temp Pulse Resp BP BP Pulse Ox 10/01/20 05:32 98.3 F 90 20 124/83 98 10/01/20 05:00 80 10/01/20 00:39 97.6 F 90 18 97/46 97 09/30/20 22:00 111 H 147/89 09/30/20 21:31 96 09/30/20 21:00 111 H 09/30/20 20:52 98.2 F 92 H 20 147/89 96 09/30/20 20:20 137/91 99 09/30/20 20:13 98 F 09/30/20 20:01 137/91 89 09/30/20 20:00 96 09/30/20 19:01 90 18 147/88 95 09/30/20 15:01 99 H 16 147/88 99 09/30/20 13:50 98 H 145/97 09/30/20 13:49 98 H 145/97 09/30/20 13:40 98.1 F 100 H 22 145/97 98 09/30/20 13:35 150/99 99 09/30/20 09:47 143/90 09/30/20 09:46 142/94 09/30/20 09:45 145/90 09/30/20 09:44 142/95 09/30/20 09:42 146/97 09/30/20 09:41 144/96 09/30/20 09:40 149/94 09/30/20 09:38 145/98 09/30/20 09:14 147/93 - Physical Examination General: No Apparent Distress HEENT: Positive: PERRL Neck: Positive: neck supple Cardiac: Positive: Reg Rate and Rhythm Lungs: Positive: Decreased Breath Sounds Neuro: Positive: Grossly Intact Abdomen: Positive: Soft Extremities: Present: +2 Edema - Labs and Meds CBC 10/01/20 Range/Units 04:35 WBC 5.0 (4.5-11.0) K/mm3 RBC 4.11 (3.65-5.03) M/mm3 Hgb 12.1 (11.8-15.2) gm/dl Hct 36.8 (35.5-45.6) % Plt Count 167 (140-440) K/mm3 Lymph # (Auto) 1.0 L (1.2-5.4) K/mm3 [place] # (Auto) 0.6 (0.0-0.8) K/mm3 Eos # (Auto) 0.0 (0.0-0.4) K/mm3 Baso # (Auto) 0.0 (0.0-0.1) K/mm3 Comprehensive Metabolic Panel 10/01/20 Range/Units 04:35 Sodium 140 (137-145) mmol/L Potassium 3.7 (3.6-5.0) mmol/L Chloride 101.5 (98-107) mmol/L Carbon Dioxide 26 (22-30) mmol/L BUN 21 H (9-20) mg/dL Creatinine 0.8 (0.8-1.3) mg/dL Glucose 91 (75-100) mg/dL Calcium 8.6 (8.4-10.2) mg/dL
[2020-10-01] MEDS ORDERED: ASPIRIN EC 325 MG TAB PO SCH (10:00)
[2020-10-01] MEDS: LISINOPRIL 10 MG TAB PO SCH (11:26)
[2020-10-01] MEDS: ASPIRIN EC 81 MG TAB PO SCH (11:26)
[2020-10-01] MEDS: SPIRONOLACTONE 25 MG TAB PO SCH (11:26)
[2020-10-01] MEDS: carvediloL 6.25 MG TAB PO SCH ×2 (11:26→22:45)
--- NOTE | 2020-10-01 13:25 | Electrocardiograph Report ---
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
--- NOTE | 2020-10-01 13:29 | Electrocardiograph Report ---
[facility] Test Date: 2020-10-01 Test Time: 11:17:19 Pat Name: RAUL HILL Department: Room: A471 1 Gender: M Deck Scaler: KEL : 1965 Requested By: SNEHAL DOE Order Number: [id number] Reading MD: Lacey Redmond Measurements Intervals Rigby Rate: 89 P: 41 MS: 146 QRS: 25 QRSD: 172 T: 233 QT: 445 QTc: 543 Interpretive Statements Sinus rhythm Probable left atrial enlargement Left bundle branch block ST elevation secondary to IVCD Compared to ECG 10/01/2020 08:03:48 No significant changes Electronically Signed On 10-01-2020 13:28:33 EDT by Lacey Redmond
[2020-10-02] MEDS: MILRINONE-D5W 20 MG/100 ML 20 MG/100 ML BAG IV SCH ×3 (04:47→18:25)
[2020-10-02] MEDS: FUROSEMIDE 40 MG/4 ML INJ IV SCH ×2 (05:42→18:18)
[2020-10-02] MEDS: HEPARIN 5,000 UNIT/1 ML VIAL SUB-Q SCH ×3 (05:42→21:32)
--- NOTE | 2020-10-02 09:27 | Progress Note ---
<TANNERTJLINNEA - Last Filed: 10/02/20 09:25> Assessment and Plan Chest pain, atypical Acute systolic heart failure Hx of dilated cardiomyopathy, nonischemic follows with [facility] LVEF 15-20% by echo this admission. [facility] 07/2019: angiographically normal coronary arteries, EF 20-25%. Left bundle branch block Daily weight; strict I's and O's. Advised low sodium diet and fluid restriction. Continue aggressive medical therapy for systolic heart failure with IV milrinone for another 24 hours. Subjective Date of service: 10/02/20 Interval history: IV milrinone continues. BP is stable. Reports he is diuresing well. Objective Vital Signs Temp Pulse Resp Resp BP BP Pulse Ox 10/02/20 08:30 96 10/02/20 04:37 98.0 F 79 18 124/77 96 10/01/20 23:14 97.8 F 82 18 101/65 95 10/01/20 22:45 91 H 115/62 10/01/20 22:00 94 H 20 96 10/01/20 20:25 100 10/01/20 20:23 98.9 F 91 H 18 115/62 97 10/01/20 17:29 117/76 10/01/20 16:31 98.1 F 87 18 86/48 97 10/01/20 15:06 96 10/01/20 11:56 97.9 F 88 18 117/61 97 10/01/20 10:00 82 96 - Physical Examination General: No Apparent Distress HEENT: Positive: PERRL Neck: Positive: neck supple Cardiac: Positive: Reg Rate and Rhythm Lungs: Positive: Decreased Breath Sounds Neuro: Positive: Grossly Intact Abdomen: Positive: Soft Skin: Positive: Clear Extremities: Present: +1 Edema <SIOMARA SY - Last Filed: 10/07/20 07:28> Subjective Interval history: I SAW THIS PT & AGREE WITH THE Dx & Tx PLAN.
[2020-10-02] MEDS: ASPIRIN EC 81 MG TAB PO SCH (11:15)
[2020-10-02] MEDS: SPIRONOLACTONE 25 MG TAB PO SCH (11:16)
[2020-10-02] MEDS: LISINOPRIL 10 MG TAB PO SCH (11:16)
[2020-10-02] MEDS: carvediloL 6.25 MG TAB PO SCH ×2 (11:16→21:32)
--- NOTE | 2020-10-02 11:18 | Progress Note ---
Assessment and Plan Assessment and plan: Acute on chronic combined systolic and diastolic heart failure. EF 15 to 20% Severe pulmonary hypertension. RVSP 65-70 mmHg Acute hypoxic respiratory failure. Etiology secondary to above Nonischemic dilated cardiomyopathy. Medical noncompliance. 09/30/2020. Follow-up echocardiogram to assess left ventricular function. Continue GDMT for heart failure with lisinopril, spironolactone, aspirin and Coreg. Continue IV diuretics/IV milrinone. Cardiology following. Ischemic evaluation per cardiology recommendations 10/01/2020. Echocardiogram revealed left ventricular dilatation with ventricular systolic function severely decreased. Mild to moderate concentric left ventricular hypertrophy with EF of 15 to 20%. The patient also has severe pulmonary hypertension with RVSP 65-70 mmHg. Continue aspirin, Coreg, Lasix 40 mg IV twice daily, Zestril and milrinone per cardiology recommendations. Continue O2 supplementation to maintain sats greater than 92% 10/02/2020. Cardiology with plans to continue aggressive medical therapy with IV milrinone for another 24 hours. Continue low-sodium diet and fluid restriction. Daily weight. strict I's and O's. LVEF 15-20% by echo this admission. History Interval history: No new issues overnight. Hospitalist Physical - Constitutional Vitals: Temp Pulse Resp BP Pulse Ox 98.0 F 79 18 124/77 96 10/02/20 04:37 10/02/20 04:37 10/02/20 04:37 10/02/20 04:37 10/02/20 08:30 General appearance: Present: no acute distress - EENT Eyes: Present: PERRL, EOM intact ENT: hearing intact, clear oral mucosa, dentition normal - Neck Neck: Present: supple, normal ROM - Respiratory Respiratory effort: normal Respiratory: bilateral: CTA - Cardiovascular Rhythm: regular Heart Sounds: Present: S1 & S2. Absent: gallop, rub - Extremities Extremities: no ischemia, No edema, Full ROM - Abdominal General gastrointestinal: soft, non-tender, non-distended, normal bowel sounds - Integumentary Integumentary: Present: clear, warm, dry - Neurologic Neurologic: CNII-XII intact, moves all extremities HEART Score - HEART Score EKG: Non-specific Age: 45-65 Risk factors: > 3 risk factors or hx of atherosclerotic disease (Obesity, hypertension, alcoholism, probable obstructive sleep) Troponin: Troponin T < 0.010 ng/mL (0.00-0.029) 09/30/20 11:41 Troponin: < normal limit - Critical Actions Critical Actions: 4-6 pts:12-16.6% risk of adverse cardiac event. Should be admitted Results - Labs CBC & Chem 7: 10/01/20 04:35 10/01/20 04:35 Labs: Laboratory Last Values WBC 5.0 K/mm3 (4.5-11.0) 10/01/20 04:35 RBC 4.11 M/mm3 (3.65-5.03) 10/01/20 04:35 Hgb 12.1 gm/dl (11.8-15.2) 10/01/20 04:35 Hct 36.8 % (35.5-45.6) 10/01/20 04:35 MCV 90 fl (84-94) 10/01/20 04:35 MCH 30 pg (28-32) 10/01/20 04:35 MCHC 33 % (32-34) 10/01/20 04:35 RDW 17.2 % (13.2-15.2) H 10/01/20 04:35 Plt Count 167 K/mm3 (140-440) 10/01/20 04:35 Lymph % (Auto) 19.7 % (13.4-35.0) 10/01/20 04:35 Kerr % (Auto) 12.8 % (0.0-7.3) H 10/01/20 04:35 Eos % (Auto) 0.7 % (0.0-4.3) 10/01/20 04:35 Baso % (Auto) 0.3 % (0.0-1.8) 10/01/20 04:35 Lymph # (Auto) 1.0 K/mm3 (1.2-5.4) L 10/01/20 04:35 Kerr # (Auto) 0.6 K/mm3 (0.0-0.8) 10/01/20 04:35 Eos # (Auto) 0.0 K/mm3 (0.0-0.4) 10/01/20 04:35 Baso # (Auto) 0.0 K/mm3 (0.0-0.1) 10/01/20 04:35 Seg Neutrophils % 66.5 % (40.0-70.0) 10/01/20 04:35 Seg Neutrophils # 3.3 K/mm3 (1.8-7.7) 10/01/20 04:35 PT 13.5 Sec. (12.2-14.9) 09/30/20 03:44 INR 0.97 (0.87-1.13) 09/30/20 03:44 APTT 25.3 Sec. (24.2-36.6) 09/30/20 03:44 Sodium 140 mmol/L (137-145) 10/01/20 04:35 Potassium 3.7 mmol/L (3.6-5.0) 10/01/20 04:35 Chloride 101.5 mmol/L (98-107) 10/01/20 04:35 Carbon Dioxide 26 mmol/L (22-30) 10/01/20 04:35 Anion Gap 16 mmol/L 10/01/20 04:35 BUN 21 mg/dL (9-20) H 10/01/20 04:35 Creatinine 0.8 mg/dL (0.8-1.3) 10/01/20 04:35 Estimated GFR > 60 ml/min 10/01/20 04:35 BUN/Creatinine Ratio 26 % 10/01/20 04:35 Glucose 91 mg/dL (75-100) 10/01/20 04:35 Calcium 8.6 mg/dL (8.4-10.2) 10/01/20 04:35 Magnesium 2.10 mg/dL (1.7-2.3) 09/30/20 03:44 Total Bilirubin 0.70 mg/dL (0.1-1.2) 09/30/20 03:44 AST 54 units/L (5-40) H 09/30/20 03:44 ALT 65 units/L (7-56) H 09/30/20 03:44 Alkaline Phosphatase 51 units/L (35-129) 09/30/20 03:44 Troponin T < 0.010 ng/mL (0.00-0.029) 09/30/20 11:41 NT-Pro-B Natriuret Pep 98222 pg/mL (0-900) H 09/30/20 03:44 Total Protein 6.8 g/dL (6.3-8.2) 09/30/20 03:44 Albumin 3.6 g/dL (3.9-5) L 09/30/20 03:44 Albumin/Globulin Ratio 1.1 % 09/30/20 03:44 Cotton/IV: Voiding Method Urinal Active Medications - Current Medications Current Medications: Generic Name Dose Route Start Last Admin Trade Name Freq PRN Reason Stop Dose Admin Acetaminophen 650 mg 09/30/20 05:05 Acetaminophen 325 Mg Tab PO Q4H PRN Pain MILD(1-3)/Fever >100.5/YARBROUGH Aspirin 81 mg 09/30/20 11:00 10/01/20 11:26 Aspirin Ec 81 Mg Tab PO [address] Administration Carvedilol 6.25 mg 09/30/20 10:00 10/01/20 22:45 Carvedilol 6.25 Mg Tab PO 6.[address] Administration Furosemide 40 mg 09/30/20 06:00 10/02/20 05:42 Furosemide 40 Mg/4 Ml Inj IV 40 mg BID@0600,1800 RD Administration Heparin Sodium (Porcine) 5,000 unit 09/30/20 06:00 10/02/20 05:42 Heparin 5,000 Unit/1 Ml Vial SUB-Q 5,[address] Administration Milrinone Lactate/Dextrose 20 mg in 100 mls @ 13.778 mls/hr 09/30/20 12:00 10/02/20 04:47 Milrinone-D5w 20 Mg/100 Ml IV 10/03/20 11:59 0.375 mcg/kg/min DIRECT RD 13.778 mls/hr Administration Protocol 0.375 MCG/KG/MIN Lisinopril 10 mg 09/30/20 10:00 10/01/20 11:26 Lisinopril 10 Mg Tab PO [address] Administration Magnesium Hydroxide 30 ml 09/30/20 05:05 Magnesium Hydroxide (Mom) Oral Liqd Udc PO Q4H PRN Constipation Morphine Sulfate 2 mg 09/30/20 05:05 10/01/20 20:35 Morphine 2 Mg/1 Ml Inj IV 2 mg Q4H PRN Administration Pain, Moderate (4-6) Morphine Sulfate 4 mg 09/30/20 05:05 09/30/20 07:50 Morphine 4 Mg/1 Ml Inj IV 4 mg Q4H PRN Administration Pain , Severe (7-10) Morphine Sulfate 2 mg 09/30/20 05:05 Morphine 2 Mg/1 Ml Inj IV Q5MIN PRN Chest Pain unrelieved by NTG Nitroglycerin 0.4 mg 09/30/20 05:05 Nitroglycerin 0.4 Mg Tab Subl SL Q5M PRN Chest Pain Ondansetron HCl 4 mg 09/30/20 05:05 Ondansetron 4 Mg/2 Ml Inj IV Q8H PRN Nausea And Vomiting Sodium Chloride 10 ml 09/30/20 10:00 10/02/20 08:00 Sodium Chloride 0.9% 10 Ml Flush Syringe IV Not Given BID RD Sodium Chloride 10 ml 09/30/20 05:05 Sodium Chloride 0.9% 10 Ml Flush Syringe IV PRN PRN LINE FLUSH Spironolactone 25 mg 09/30/20 10:00 10/01/20 11:26 Spironolactone 25 Mg Tab PO [address] Administration Tramadol HCl 50 mg 09/30/20 05:05 Tramadol 50 Mg Tab PO Q6H PRN Pain, Moderate (4-6)
[2020-10-03] MEDS: FUROSEMIDE 40 MG/4 ML INJ IV SCH ×2 (05:08→18:49)
[2020-10-03] MEDS: MILRINONE-D5W 20 MG/100 ML 20 MG/100 ML BAG IV SCH (05:08)
[2020-10-03] MEDS: HEPARIN 5,000 UNIT/1 ML VIAL SUB-Q SCH ×3 (05:08→22:55)
--- NOTE | 2020-10-03 09:35 | Progress Note ---
Assessment and Plan Assessment and plan: Acute on chronic combined systolic and diastolic heart failure. EF 15 to 20% Severe pulmonary hypertension. RVSP 65-70 mmHg Acute hypoxic respiratory failure. Etiology secondary to above Nonischemic dilated cardiomyopathy. Medical noncompliance. 09/30/2020. Follow-up echocardiogram to assess left ventricular function. Continue GDMT for heart failure with lisinopril, spironolactone, aspirin and Coreg. Continue IV diuretics/IV milrinone. Cardiology following. Ischemic evaluation per cardiology recommendations 10/01/2020. Echocardiogram revealed left ventricular dilatation with ventricular systolic function severely decreased. Mild to moderate concentric left ventricular hypertrophy with EF of 15 to 20%. The patient also has severe pulmonary hypertension with RVSP 65-70 mmHg. Continue aspirin, Coreg, Lasix 40 mg IV twice daily, Zestril and milrinone per cardiology recommendations. Continue O2 supplementation to maintain sats greater than 92% 10/02/2020. Cardiology with plans to continue aggressive medical therapy with IV milrinone for another 24 hours. Continue low-sodium diet and fluid restriction. Daily weight. strict I's and O's. LVEF 15-20% by echo this admission. 10/03/2020. Continue aggressive medical therapy with IV milrinone per cardiology recommendations. Continue low-sodium diet and fluid restriction. Daily weight. strict I's and O's. LVEF 15-20% by echo this admission. History Interval history: No new issues overnight. Hospitalist Physical - Constitutional Vitals: Temp Pulse Resp BP Pulse Ox 98.1 F 80 18 109/63 96 10/03/20 04:31 10/03/20 09:09 10/03/20 04:31 10/03/20 04:31 10/03/20 09:09 General appearance: Present: no acute distress - EENT Eyes: Present: PERRL, EOM intact ENT: hearing intact, clear oral mucosa, dentition normal - Neck Neck: Present: supple, normal ROM - Respiratory Respiratory effort: normal Respiratory: bilateral: CTA - Cardiovascular Rhythm: regular Heart Sounds: Present: S1 & S2. Absent: gallop, rub - Extremities Extremities: no ischemia, No edema, Full ROM - Abdominal General gastrointestinal: soft, non-tender, non-distended, normal bowel sounds - Integumentary Integumentary: Present: clear, warm, dry - Neurologic Neurologic: CNII-XII intact, moves all extremities HEART Score - HEART Score EKG: Non-specific Age: 45-65 Risk factors: > 3 risk factors or hx of atherosclerotic disease (Obesity, hypertension, alcoholism, probable obstructive sleep) Troponin: Troponin T < 0.010 ng/mL (0.00-0.029) 09/30/20 11:41 Troponin: < normal limit - Critical Actions Critical Actions: 4-6 pts:12-16.6% risk of adverse cardiac event. Should be admitted Results - Labs CBC & Chem 7: 10/01/20 04:35 10/01/20 04:35 Labs: Laboratory Last Values WBC 5.0 K/mm3 (4.5-11.0) 10/01/20 04:35 RBC 4.11 M/mm3 (3.65-5.03) 10/01/20 04:35 Hgb 12.1 gm/dl (11.8-15.2) 10/01/20 04:35 Hct 36.8 % (35.5-45.6) 10/01/20 04:35 MCV 90 fl (84-94) 10/01/20 04:35 MCH 30 pg (28-32) 10/01/20 04:35 MCHC 33 % (32-34) 10/01/20 04:35 RDW 17.2 % (13.2-15.2) H 10/01/20 04:35 Plt Count 167 K/mm3 (140-440) 10/01/20 04:35 Lymph % (Auto) 19.7 % (13.4-35.0) 10/01/20 04:35 Edmunds % (Auto) 12.8 % (0.0-7.3) H 10/01/20 04:35 Eos % (Auto) 0.7 % (0.0-4.3) 10/01/20 04:35 Baso % (Auto) 0.3 % (0.0-1.8) 10/01/20 04:35 Lymph # (Auto) 1.0 K/mm3 (1.2-5.4) L 10/01/20 04:35 Edmunds # (Auto) 0.6 K/mm3 (0.0-0.8) 10/01/20 04:35 Eos # (Auto) 0.0 K/mm3 (0.0-0.4) 10/01/20 04:35 Baso # (Auto) 0.0 K/mm3 (0.0-0.1) 10/01/20 04:35 Seg Neutrophils % 66.5 % (40.0-70.0) 10/01/20 04:35 Seg Neutrophils # 3.3 K/mm3 (1.8-7.7) 10/01/20 04:35 PT 13.5 Sec. (12.2-14.9) 09/30/20 03:44 INR 0.97 (0.87-1.13) 09/30/20 03:44 APTT 25.3 Sec. (24.2-36.6) 09/30/20 03:44 Sodium 140 mmol/L (137-145) 10/01/20 04:35 Potassium 3.7 mmol/L (3.6-5.0) 10/01/20 04:35 Chloride 101.5 mmol/L (98-107) 10/01/20 04:35 Carbon Dioxide 26 mmol/L (22-30) 10/01/20 04:35 Anion Gap 16 mmol/L 10/01/20 04:35 BUN 21 mg/dL (9-20) H 10/01/20 04:35 Creatinine 0.8 mg/dL (0.8-1.3) 10/01/20 04:35 Estimated GFR > 60 ml/min 10/01/20 04:35 BUN/Creatinine Ratio 26 % 10/01/20 04:35 Glucose 91 mg/dL (75-100) 10/01/20 04:35 Calcium 8.6 mg/dL (8.4-10.2) 10/01/20 04:35 Magnesium 2.10 mg/dL (1.7-2.3) 09/30/20 03:44 Total Bilirubin 0.70 mg/dL (0.1-1.2) 09/30/20 03:44 AST 54 units/L (5-40) H 09/30/20 03:44 ALT 65 units/L (7-56) H 09/30/20 03:44 Alkaline Phosphatase 51 units/L (35-129) 09/30/20 03:44 Troponin T < 0.010 ng/mL (0.00-0.029) 09/30/20 11:41 NT-Pro-B Natriuret Pep 43457 pg/mL (0-900) H 09/30/20 03:44 Total Protein 6.8 g/dL (6.3-8.2) 09/30/20 03:44 Albumin 3.6 g/dL (3.9-5) L 09/30/20 03:44 Albumin/Globulin Ratio 1.1 % 09/30/20 03:44 Cotton/IV: Voiding Method Toilet Active Medications - Current Medications Current Medications: Generic Name Dose Route Start Last Admin Trade Name Freq PRN Reason Stop Dose Admin Acetaminophen 650 mg 09/30/20 05:05 Acetaminophen 325 Mg Tab PO Q4H PRN Pain MILD(1-3)/Fever >100.5/YARBROUGH Aspirin 81 mg 09/30/20 11:00 10/02/20 11:15 Aspirin Ec 81 Mg Tab PO [address] Administration Carvedilol 6.25 mg 09/30/20 10:00 10/02/20 21:32 Carvedilol 6.25 Mg Tab PO 6.[address] Administration Furosemide 40 mg 09/30/20 06:00 10/03/20 05:08 Furosemide 40 Mg/4 Ml Inj IV 40 mg BID@0600,1800 RD Administration Heparin Sodium (Porcine) 5,000 unit 09/30/20 06:00 10/03/20 05:08 Heparin 5,000 Unit/1 Ml Vial SUB-Q 5,[address] Administration Milrinone Lactate/Dextrose 20 mg in 100 mls @ 13.778 mls/hr 09/30/20 12:00 10/03/20 05:08 Milrinone-D5w 20 Mg/100 Ml IV 10/03/20 11:59 0.375 mcg/kg/min DIRECT RD 13.778 mls/hr Administration Protocol 0.375 MCG/KG/MIN Lisinopril 10 mg 09/30/20 10:00 10/02/20 11:16 Lisinopril 10 Mg Tab PO [address] Administration Magnesium Hydroxide 30 ml 09/30/20 05:05 Magnesium Hydroxide (Mom) Oral Liqd Udc PO Q4H PRN Constipation Morphine Sulfate 2 mg 09/30/20 05:05 10/01/20 20:35 Morphine 2 Mg/1 Ml Inj IV 2 mg Q4H PRN Administration Pain, Moderate (4-6) Morphine Sulfate 4 mg 09/30/20 05:05 09/30/20 07:50 Morphine 4 Mg/1 Ml Inj IV 4 mg Q4H PRN Administration Pain , Severe (7-10) Morphine Sulfate 2 mg 09/30/20 05:05 Morphine 2 Mg/1 Ml Inj IV Q5MIN PRN Chest Pain unrelieved by NTG Nitroglycerin 0.4 mg 09/30/20 05:05 Nitroglycerin 0.4 Mg Tab Subl SL Q5M PRN Chest Pain Ondansetron HCl 4 mg 09/30/20 05:05 Ondansetron 4 Mg/2 Ml Inj IV Q8H PRN Nausea And Vomiting Sodium Chloride 10 ml 09/30/20 10:00 10/02/20 21:32 Sodium Chloride 0.9% 10 Ml Flush Syringe IV [address] Administration Sodium Chloride 10 ml 09/30/20 05:05 Sodium Chloride 0.9% 10 Ml Flush Syringe IV PRN PRN LINE FLUSH Spironolactone 25 mg 09/30/20 10:00 10/02/20 11:16 Spironolactone 25 Mg Tab PO [address] Administration Tramadol HCl 50 mg 09/30/20 05:05 Tramadol 50 Mg Tab PO Q6H PRN Pain, Moderate (4-6)
--- NOTE | 2020-10-03 09:50 | Progress Note ---
<GENIE HARTANGELLINNEA - Last Filed: 10/03/20 09:48> Assessment and Plan Chest pain, atypical Acute systolic heart failure Hx of dilated cardiomyopathy, nonischemic follows with [facility] LVEF 15-20% by echo this admission. [facility] 07/2019: angiographically normal coronary arteries, EF 20-25%. Left bundle branch block Advised low sodium diet and fluid restriction. Continue medical therapy for systolic heart failure. Discharge planning in the next 24 hours. Subjective Date of service: 10/03/20 Interval history: IV milrinone continues. BP is stable. Reports less shortness of breath and that he is diuresing well. Objective Vital Signs Temp Pulse Resp BP Pulse Ox 10/03/20 09:09 80 96 10/03/20 04:31 98.1 F 79 18 109/63 97 10/02/20 23:15 98.9 F 80 18 109/68 96 10/02/20 22:00 96 10/02/20 19:44 98.3 F 84 20 103/66 96 10/02/20 16:12 98.2 F 83 19 105/65 93 10/02/20 11:18 98.2 F 86 18 119/74 96 - Physical Examination General: No Apparent Distress HEENT: Positive: PERRL Neck: Positive: neck supple Cardiac: Positive: Reg Rate and Rhythm Lungs: Positive: Decreased Breath Sounds Neuro: Positive: Grossly Intact Abdomen: Positive: Soft Extremities: Absent: edema <SIOMARA SY - Last Filed: 10/07/20 07:21> Subjective Interval history: I SAW THIS PT & AGREE WITH THE Dx & Tx PLAN.
[2020-10-03] MEDS: LISINOPRIL 10 MG TAB PO SCH (10:47)
[2020-10-03] MEDS: SPIRONOLACTONE 25 MG TAB PO SCH (10:48)
[2020-10-03] MEDS: ASPIRIN EC 81 MG TAB PO SCH (10:48)
[2020-10-03] MEDS: carvediloL 6.25 MG TAB PO SCH ×2 (10:48→22:55)
[2020-10-04 03:52] VITALS: BP 104/63
[2020-10-04] MEDS: HEPARIN 5,000 UNIT/1 ML VIAL SUB-Q SCH (05:45)
[2020-10-04] MEDS: FUROSEMIDE 40 MG/4 ML INJ IV SCH (05:45)
--- NOTE | 2020-10-04 08:27 | Discharge Summary ---
Providers - Providers Date of Admission: 09/30/20 11:00 Date of discharge: 10/04/20 Attending physician: RIKKI BARBOZA 09/30/20 Consult to Cardiac Rehabilitation [CONS] Routine Reason For Exam: Phase I 09/30/20 03:32 Consult to Physician [CONS] Urgent Comment: Consulting Provider: WHIT REESE Physician Instructions: Reason For Exam: acute cp lbbb, hx of chf Primary care physician: CHASSIS DRIVER Hospitalization Reason for admission: CHF Condition: Stable Hospital course: 55-year-old male with past medical history of dilated cardiomyopathy and chronic systolic heart failure who presented through the emergency department with complaints of chest pressure and shortness of breath. Patient was admitted with diagnosis of acute on chronic combined systolic and diastolic heart failure (EF 15 to 20%), acute hypoxic respiratory failure, nonischemic dilated cardiomyopathy and medical noncompliance. The patient was seen by cardiology in consultation. Hospital course: 09/30/2020. Follow-up echocardiogram to assess left ventricular function. Continue GDMT for heart failure with lisinopril, spironolactone, aspirin and Coreg. Continue IV diuretics/IV milrinone. Cardiology following. Ischemic evaluation per cardiology recommendations 10/01/2020. Echocardiogram revealed left ventricular dilatation with ventricular systolic function severely decreased. Mild to moderate concentric left ventricular hypertrophy with EF of 15 to 20%. The patient also has severe pulmonary hypertension with RVSP 65-70 mmHg. Continue aspirin, Coreg, Lasix 40 mg IV twice daily, Zestril and milrinone per cardiology recommendations. Continue O2 supplementation to maintain sats greater than 92% 10/02/2020. Cardiology with plans to continue aggressive medical therapy with IV milrinone for another 24 hours. Continue low-sodium diet and fluid restriction. Daily weight. strict I's and O's. LVEF 15-20% by echo this admission. 10/03/2020. Continue aggressive medical therapy with IV milrinone per cardiology recommendations. Continue low-sodium diet and fluid restriction. Daily weight. strict I's and O's. LVEF 15-20% by echo this admission. 10/04/2020. Milrinone drip was discontinued yesterday and patient has remained stable over the past 24 hours. Patient is felt to have received maximal hospital benefit and will be discharged home. Dedicated discharge time 35 minutes. Disposition: 01 HOME / SELF CARE / HOMELESS Final Discharge Diagnosis (Prints w/discharge instructions): Acute on chronic combined systolic and diastolic heart failure, severe pulmonary hypertension, acute hypoxic respiratory failure, nonischemic dilated cardiomyopathy, medical noncompliance. Core Measure Documentation - Palliative Care Palliative Care/ Comfort Measures: Not Applicable - Core Measures Any of the following diagnoses?: heart failure - Heart Failure Discharge Requirements CHARISSA/ARB for LVSD if EF <40%: Yes Beta joel at discharge: Yes Exam - Constitutional Vitals: Temp Pulse Resp BP Pulse Ox 98.0 F 79 14 104/63 96 10/04/20 03:16 10/04/20 03:16 10/04/20 03:16 10/04/20 03:16 10/04/20 03:16 General appearance: Present: no acute distress, well-nourished - EENT Eyes: Present: PERRL ENT: hearing intact, clear oral mucosa - Neck Neck: Present: supple, normal ROM - Respiratory Respiratory effort: normal Respiratory: bilateral: CTA - Cardiovascular Heart Sounds: Present: S1 & S2. Absent: rub, click - Extremities Extremities: pulses symmetrical, No edema Peripheral Pulses: within normal limits - Abdominal General gastrointestinal: Present: soft, non-tender, non-distended, normal bowel sounds Male genitourinary: Present: normal - Integumentary Integumentary: Present: clear, warm, dry - Musculoskeletal Musculoskeletal: gait normal, strength equal bilaterally - Psychiatric Psychiatric: appropriate mood/affect, intact judgment & insight - Neurologic Neurologic: CNII-XII intact, moves all extremities Plan Activity: advance as tolerated Weight Bearing Status: Weight Bear as Tolerated Diet: low fat, low cholesterol, low salt Special Instructions: restrict fluid intake to (1 L) Follow up with: ALEXIA PINEDO MD [Primary Care Provider] - 3-5 Days AMELIA HORTON MD [Staff Physician] - 7 Days Prescriptions: Spironolactone [Aldactone] 25 mg PO QDAY #30 tablet carvediloL [Coreg] 6.25 mg PO BID #60 tablet Aspirin EC [Halfprin EC] 81 mg PO QDAY #30 tablet Furosemide [Lasix TAB] 40 mg PO BID #60 tablet lisinopriL [Zestril TAB] 10 mg PO QDAY #30 tablet
[2020-10-04] MEDS: SPIRONOLACTONE 25 MG TAB PO SCH (11:27)
[2020-10-04] MEDS: ASPIRIN EC 81 MG TAB PO SCH (11:28)
[2020-10-04] MEDS: carvediloL 6.25 MG TAB PO SCH (11:28)
[2020-10-04] MEDS: LISINOPRIL 10 MG TAB PO SCH (11:28)
--- NOTE | 2020-10-04 12:18 | Progress Note ---
Assessment and Plan Chest pain, atypical Acute systolic heart failure - improved Hx of dilated cardiomyopathy, nonischemic follows with [facility] LVEF 15-20% by echo this admission. [facility] 07/2019: angiographically normal coronary arteries, EF 20-25%. Left bundle branch block Advised low sodium diet and fluid restriction. Continue GDMT for systolic heart failure with carvedilol, lisinopril, and spironolactone. 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 May also consider for eventual [employer] pacemaker / ICD given LBBB after GDMT for >90 days. Patient may be discharged form cardiac stand point. Subjective Date of service: 10/04/20 Interval history: No CP/SOB. Breathing back to baseline. Wants to go home. Objective Vital Signs Temp Pulse Resp BP Pulse Ox 10/04/20 03:16 98.0 F 79 14 104/63 96 10/03/20 23:02 98.1 F 77 17 113/76 91 10/03/20 22:55 76 112/72 10/03/20 22:00 78 18 96 10/03/20 19:12 97.4 F L 83 16 112/72 98 10/03/20 15:52 98.3 F 79 18 104/74 98 - Physical Examination Narrative exam: Gen-NAD, comfortable Neck-supple, no JVD CV-RRR, no murmur, no edema Lungs-CTAB, on room air Abd-soft/nt/nd Skin-warm to touch, no obvious rash Neuro-alert and oriented, no facial droop Psych-affect and mood appropriate Extremities: Present: edema
== END 2020-10-04 15:20 | disposition home or self-care (01) | DRG 291 ==
LOC: ED 03:16 → 4A 04:57 → OBSVTOIN 11:00 → 4A 19:15
PROVIDERS: ADMIT Internal Medicine Geriatric Medicine; ATTEND Hospitalist
DX: I11.0 Hypertensive heart disease with heart failure (principal); J96.01 Acute respiratory failure with hypoxia; Z68.41 Body mass index [BMI] 40.0-44.9, adult; I50.43 Acute on chronic combined systolic (congestive) and diastolic (congestive) heart failure; I42.0 Dilated cardiomyopathy; Z91.14 Patient's other noncompliance with medication regimen; I27.20 Pulmonary hypertension, unspecified; I44.7 Left bundle-branch block, unspecified; E66.9 Obesity, unspecified
CPT/HCPCS: 36415; 71045; 78452; 80048; 80053; 83735; 83880; 84484; 85025; 85610; 85730; 93005; 93017; 93306; G0378; A9502; J1644; J1940; J2260; J2270; J2785

== ENCOUNTER 2020-10-13 06:52 | Emergency (ER) | payer OTHER ==
--- NOTE | 2020-10-13 07:11 | Emergency Department Report ---
HPI - General Chief Complaint: Neuro Symptoms/Deficit Time Seen by Provider: 10/13/20 07:03 - HPI HPI: Triage The patient is a 55-year-old male present with chief complaint of altered mental status. The patient's daughter states last night at approximately 20:30 the patient developed confused speech. The daughter states the patient would speak with the words were nonsensical or "he could not get his words out." She states the patient seemed unsteady on his feet. Patient went to sleep at approximately 21: 00 and awakened this morning at approximately 05:00. The daughter states the patient speech still was not normal but she taken to work. The patient states she received a call at approximately 06: 00 from the patient requesting that she come pick him back up from work because "something does not feel right." In the ED the patient has confused speech and his responses to questions are unrelated to the questions posed. The patient is unable to name the hospital he is then or the current year. A code stroke was called from triage by myself ED Past Medical Hx - Past Medical History Hx Hypertension: Yes Hx Congestive Heart Failure: Yes Hx COPD: Yes - Surgical History Hx Appendectomy: No - Family History Family history: no significant - Social History Smoking Status: Unknown if ever smoked - Medications Home Medications: Home Medications Medication Instructions Recorded Confirmed Last Taken Type Aspirin EC [Halfprin EC] 81 mg PO QDAY #30 tablet 10/04/20 Unknown Rx Furosemide [Lasix TAB] 40 mg PO BID #60 tablet 10/04/20 Unknown Rx Spironolactone [Aldactone] 25 mg PO QDAY #30 tablet 10/04/20 Unknown Rx carvediloL [Coreg] 6.25 mg PO BID #60 tablet 10/04/20 Unknown Rx lisinopriL [Zestril TAB] 10 mg PO QDAY #30 tablet 10/04/20 Unknown Rx ED Review of Systems ROS: Stated complaint: CONFUSION/BLACKOUT/SLURRED SPEECH Other details as noted in HPI Comment: Unobtainable due to pts medical conditions Neurological: confusion Physical Exam - Physical Exam Vital Signs: Vital Signs 10/13/20 06:56 Temperature 98.5 F Pulse Rate 76 Respiratory 18 Rate Blood Pressure 97/65 O2 Sat by Pulse 99 Oximetry Physical Exam: GENERAL: The patient is well-developed well-nourished male sitting in chair not appearing to be in acute distress HEENT: Normocephalic. Atraumatic. Extraocular motions are intact. Patient has moist mucous membranes. NECK: Supple. Trachea midline CHEST/LUNGS: Clear to auscultation. There is no respiratory distress noted. HEART/CARDIOVASCULAR: Regular. There is no tachycardia. There is no gallop rub or murmur. ABDOMEN: Abdomen is soft, nontender. Patient has normal bowel sounds. There is no abdominal distention. SKIN: There is no rash. There is no edema. There is no diaphoresis. NEURO: The patient is awake and alert but disoriented. The patient answers questions posed to him with unrelated answers. The patient is partially cooperative with neurologic exam but does not attempt to raise his eyebrows or smile forcefully. Extraocular motions are intact. Cranial nerves II through XII otherwise grossly intact. The patient moves all 4 extremities. Patient has equal commercial lending assistant bilaterally. The patient has clear speech but his answers do not correlate to the questions. NIHSS= 11 MUSCULOSKELETAL: There is no evidence of acute injury. ED Course Vital Signs 10/13/20 06:56 Temperature 98.5 F Pulse Rate 76 Respiratory 18 Rate Blood Pressure 97/65 O2 Sat by Pulse 99 Oximetry - Consultations Consultation #1: 10/13/20 07:17 Telemetry neurologist requesting CTAs brain and neck Consultation #2: 10/13/20 07:29 [place] transfer service called 10/13/20 07:35 No beds available for transfer 10/13/20 07:42 [facility] called Case discussed with neuro interventionalist Dr. Carrasco-no beds available 10/13/20 07:43 [place] transfer line called 10/13/20 08:[address] Ratliff-we will accept patient in transfer to [facility]. Request chest x-ray be performed ED Medical Decision Making - Lab Data Result diagrams: 10/13/20 07:35 10/13/20 07:35 Laboratory Tests 10/13/20 10/13/20 10/13/20 07:35 07:35 07:35 WBC 5.6 RBC 4.72 Hgb 13.9 Hct 41.8 MCV 89 MCH 30 MCHC 33 RDW 15.9 H Plt Count 205 Lymph % (Auto) 24.2 Karnes % (Auto) 10.6 H Eos % (Auto) 0.8 Baso % (Auto) 0.5 Lymph # (Auto) 1.4 Karnes # (Auto) 0.6 Eos # (Auto) 0.0 Baso # (Auto) 0.0 Seg Neutrophils % 63.9 Seg Neutrophils # 3.6 PT 13.9 INR 1.01 APTT 27.5 Thrombin Time 17.7 Sodium 133 L Potassium 4.6 Chloride 98.6 Carbon Dioxide 26 Anion Gap 13 BUN 47 H Creatinine 1.2 Estimated GFR > 60 BUN/Creatinine Ratio 39 Glucose 115 H POC Glucose Calcium 9.7 Total Bilirubin 0.60 AST 16 ALT 21 Alkaline Phosphatase 39 Ammonia Total Creatine Kinase 105 CK-MB (CK-2) 2.1 CK-MB (CK-2) Rel Index 2.0 Troponin T < 0.010 Total Protein 7.9 Albumin 3.9 Albumin/Globulin Ratio 1.0 Plasma/Serum Alcohol 10/13/20 10/13/20 10/13/20 07:35 07:35 07:47 WBC RBC Hgb Hct MCV MCH MCHC RDW Plt Count Lymph % (Auto) Karnes % (Auto) Eos % (Auto) Baso % (Auto) Lymph # (Auto) Karnes # (Auto) Eos # (Auto) Baso # (Auto) Seg Neutrophils % Seg Neutrophils # PT INR APTT Thrombin Time Sodium Potassium Chloride Carbon Dioxide Anion Gap BUN Creatinine Estimated GFR BUN/Creatinine Ratio Glucose POC Glucose 100 Calcium Total Bilirubin AST ALT Alkaline Phosphatase Ammonia 26.0 Total Creatine Kinase CK-MB (CK-2) CK-MB (CK-2) Rel Index Troponin T Total Protein Albumin Albumin/Globulin Ratio Plasma/Serum Alcohol < 0.01 - Radiology Data Radiology results: report reviewed (CT head, CTA brain, CTA neck), image reviewed (CT head, CTA brain, CTA neck, chest x-ray) interpreted by me: Chest x-ray-no definite focal infiltrates, no pneumothorax. Cardiomegaly [facility] [address] [place] [address] Cat Scan Report Signed Patient: RAUL HILL MR#: [id number] 3 : 1965 Acct:[id number] Age/Sex: 55 / M ADM Date: 10/13/20 Loc: ED Attending Dr: Ordering Physician: STARR IVAN MD Date of Service: 10/13/20 Procedure(s): CT angio neck Accession Number(s): [id number] cc: STARR IVAN MD CTA NECK WITH CONTRAST HISTORY: Code stroke, altered mental status, dysarthria COMPARISON: None. TECHNIQUE: Routine CTA of the neck is performed. 3-D/MIP reformats were postprocessed. Percentage stenosis is determined by direct quantitative measurements of diseased internal carotid artery diameter compared with normal distal internal carotid artery reference segments or by criteria similar to NASCET where applicable. All CT scans at this location are performed using CT dose reduction for ALARA by means of automated exposure control. CONTRAST: 100 ml of Omnipaque 350 FINDINGS: Aortic arch: No significant abnormality. Cervical vertebral arteries: No significant abnormality. Common carotid arteries: No s ignificant abnormality. Cervical internal carotid arteries: No significant abnormality. Additional findings: There is minimal partially calcified plaque in the right carotid bulb. IMPRESSION: No evidence for hemodynamically significant stenosis, occlusion or dissection. Signer Name: Carl Espinoza Jr, MD Signed: 10/13/2020 7:50 AM Workstation Name: [id number] Transcribed By: TTR Dictated By: CARL ESPINOZA JR, MD Electronically Authenticated By: CARL ESPINOZA JR, MD Signed Date/Time: 10/13/20 075 DD/ 0748 TD/TT: Print Cancel [facility] [address] [place] [address] Cat Scan Report Signed Patient: RAUL HILL MR#: [id number] 3 : 1965 Acct:[id number] Age/Sex: 55 / M ADM Date: 10/13/20 Loc: ED Attending Dr: Ordering Physician: STARR IVAN MD Date of Service: 10/13/20 Procedure(s): CT angio head Accession Number(s): [id number] cc: STARR IVAN MD CTA HEAD WITH CONTRAST HISTORY: Code stroke, altered mental status, dysarthria COMPARISON: CT head performed earlier today TECHNIQUE: Routine non-contrast CT Head, CTA of the head and post-contrast CT Head are performed. 3-D/MIP reformats postprocessed. All CT scans at this location are performed using CT dose reduction for ALARA by means of automated exposure control CONTRAST: 100 ml of Omnipaque 350 FINDINGS: CTA Head: Intracranial vertebral arteries: No significant abnormality. Basilar artery: No significant abnormality. Posterior cerebral arteries: No significant abnormality. Intracranial internal carotid arteries: No significant abnormality. Anterior cerebral arteries: No significant abnormality. Middle cerebral arteries: There is near complete occlusion in the left M3 segment within the left sylvian fissure which is best demonstrated on axial image 399, series 2. There is eventual complete occlusion of the left M4 segment. The right MCA is widely patent. Dural venous sinuses:Not optimally opacified. No significant abno rmality. Additional findings: None. IMPRESSION: Complete or near-complete occlusion of the left M3 and M4 segments as described. This correlates with the abnormality seen on recent CT head without contrast. Signer Name: Carl Espinoza Jr, MD Signed: 10/13/2020 7:59 AM Workstation Name: [id number] Transcribed By: TTR Dictated By: CARL ESPINOZA JR, MD Electronically Authenticated By: CARL ESPINOZA JR, MD Signed Date/Time: 10/13/20758 DD/ 9 TD/TT: Print Cancel [facility] [address] [place] [address] Cat Scan Report Signed Patient: RAUL HILL MR#: [id number] 3 : 1965 Acct:[id number] Age/Sex: 55 / M ADM Date: 10/13/20 Loc: ED Attending Dr: Ordering Physician: STARR IVAN MD Date of Service: 10/13/20 Procedure(s): CT head/brain wo con Accession Number(s): [id number] cc: STARR IVAN MD CT HEAD WITHOUT CONTRAST INDICATION : CODE STROKE LAST KNOWN WELL TIME LAST NIGHT CALL ER MAIN AT 8199 Confused speech. TECHNIQUE: Axial imaging performed from the skull apex through the skull base without the use of contrast. Sagittal and coronal reformatted images. All CT scans at this location are performed using CT dose reduction for ALARA by means of automated exposure control. COMPARISON: None FINDINGS: Parenchyma: A hyperdense left MCA is suspected in the left sylvian fissure best appreciated on axial image 13. This could represent a hyperacute ischemic stroke in the left MCA distribution. This appears to involve the left M3 segment of the left MCA. There is suggestion of subtle loss of the victoria-white interface in the left parietal lobe watershed region. There is no evidence for hemorrhage. Mild diffuse hypoattenuation throughout the white matter is noted consistent with chronic microangiopathy. No chronic infarct, mass or extra-axial fluid collection. Ventricles: Ventricles are normal in size and appear symmetric. Bones: No acute osseous abnormality. Sinuses: Sinuses and mastoid air cells are clear. Soft tissues: Soft tissues including the orbits appear normal. IMPRESSION: Hyperdense left MCA is suspected in the left M3 segment concerning for hyperacute ischemia. No hemorrhage is appreciated. CODE STROKE: Time of Communication (VENEER DRIER/CDT): 0639 hours Licensed Practitioner Receiving Report: Dr. Ivan Signer Name: Carl Espinoza Jr, MD Signed: 10/13/2020 7:42 AM Workstation Name: [id number] Transcribed By: TTR Dictated By: CARL ESPINOZA JR, MD Electronically Authenticated By: CARL ESPINOZA JR, MD Signed Date/Time: 10/13/20741 DD/ 6 TD/TT: Print Cancel - Medical Decision Making Was informed by departmental secretary that flight is unavailable due to weather so ground transportation was arranged. - Differential Diagnosis CVA, altered mental status, dehydration Critical care attestation.: If time is entered above; I have spent that time in minutes in the direct care of this critically ill patient, excluding procedure time. ED Disposition Clinical Impression: CVA (cerebral vascular accident) Disposition: 04 INTERMEDIATE CARE FACILITY Is pt being admited?: Yes Does the pt Need Aspirin: Yes Condition: Serious Time of Disposition: 08:59 (Awaiting transport)
--- NOTE | 2020-10-13 07:31 | Consultation ---
History of Present Illness History of present illness: [place] [facility] Consult Note # Demographics Consult Type: Acute Stroke Level 1 (0-4.5 hrs) Patient Location: Emergency Room First Name: Diallo Last Name: Rikki Date of : 1965 Age: 55 Gender: Male Facility: [facility] Time of Initial Page (): 10/13/2020, 07:06 Time of Return Call ( Time): 10/13/2020, 07:07 # HPI Chief Complaint: speech changes History: 55M with recent RI (1 week ago) presents with jumbled speech and memory changes. Symptoms started at 1999 last evening. Similar episode 2 days prior. This morning was having trouble with memory and speech still, so came to the hospital. # Scores Time of exam and NIHSS (): 10/13/2020, 07:08 Level of Consciousness 1a: [0] = Alert; keenly responsive LOC Questions 1b: [2] = Answers neither correctly LOC Commands 1c: [1] = Performs one correctly Best Gaze 2: [0] = Normal Visual 3: [0] = No visual loss Facial Palsy 4: [1] = Minor paralysis Motor Arm Left 5a: [0] = No drift Motor Arm Right 5b: [1] = Drift Motor Leg Left 6a: [0] = No drift Motor Leg Right 6b: [1] = Drift Limb Ataxia 7: [0] = Absent Sensory 8: [1] = Guno-aw-vlaccxve sensory loss Best Language 9: [2] = Severe aphasia Dysarthria 10: [0] = Normal Extinction and Inattention 11: [2] = Profound bruno-inattention or extinction to more than one modality NIHSS Total: 11 # Data Time Head CT personally read by me ( Time): 10/13/2020, 07:[address]: no bleed preliminarily reviewed by me, please refer to radiology read for official reading CTA Head: preliminarily reviewed by me, please refer to radiology read for official reading L M2/3 occlusion CTA Neck: patent vessels preliminarily reviewed by me, please refer to radiology read for official reading # Assessment Impression: Ischemic Stroke (Acute) # Plan Thrombolytic/Intervention: IA Intervention Thrombolytic Exclusion: > 4.5 hours Target Blood Pressure: SBP < 220 DBP < 105 Medication: ASA 325 Other: I have discussed my recommendations with the referring provider Disposition: transfer to [place] capable facility # Logistics Telemedicine: Interactive 2 way audio and visual telecommunication technology was utilized during this visit Electronically signed at 10/13/2020 07:30 (Eastern Time) by Freddy Treviño MD Medications and Allergies Allergies Allergy/AdvReac Type Severity Reaction Status Date / Time No Known Allergies Allergy Verified 09/30/20 04:26 Home Medications Medication Instructions Recorded Confirmed Last Taken Type Aspirin EC [Halfprin EC] 81 mg PO QDAY #30 tablet 10/04/20 Unknown Rx Furosemide [Lasix TAB] 40 mg PO BID #60 tablet 10/04/20 Unknown Rx Spironolactone [Aldactone] 25 mg PO QDAY #30 tablet 10/04/20 Unknown Rx carvediloL [Coreg] 6.25 mg PO BID #60 tablet 10/04/20 Unknown Rx lisinopriL [Zestril TAB] 10 mg PO QDAY #30 tablet 10/04/20 Unknown Rx Physical Examination - Vital Signs Vital Signs: Vital Signs Temp Pulse Resp BP Pulse Ox 98.5 F 76 18 97/65 99 10/13/20 06:56 10/13/20 06:56 10/13/20 06:56 10/13/20 06:56 10/13/20 06:56
--- NOTE | 2020-10-13 07:47 | Cat Scan Report ---
CT HEAD WITHOUT CONTRAST INDICATION : CODE STROKE LAST KNOWN WELL TIME LAST NIGHT CALL ER MAIN AT 8199 Confused speech. TECHNIQUE: Axial imaging performed from the skull apex through the skull base without the use of con trast. Sagittal and coronal reformatted images. All CT scans at this location are performed using C T dose reduction for ALARA by means of automated exposure control. COMPARISON: None FINDINGS: Parenchyma: A hyperdense left MCA is suspected in the left sylvian fissure best appreciated on axial image 13. This could represent a hyperacute ischemic stroke in the left MCA distribution. This appea rs to involve the left M3 segment of the left MCA. There is suggestion of subtle loss of the victoria-whi te interface in the left parietal lobe watershed region. There is no evidence for hemorrhage. Mild di ffuse hypoattenuation throughout the white matter is noted consistent with chronic microangiopathy. N o chronic infarct, mass or extra-axial fluid collection. Ventricles: Ventricles are normal in size and appear symmetric. Bones: No acute osseous abnormality. Sinuses: Sinuses and mastoid air cells are clear. Soft tissues: Soft tissues including the orbits appear normal. IMPRESSION: Hyperdense left MCA is suspected in the left M3 segment concerning for hyperacute ischemi a. No hemorrhage is appreciated. CODE STROKE: Time of Communication (OPTICAL ASSISTANT/CDT): 0639 hours Licensed Practitioner Receiving Report: Dr. Goff Signer Name: Carl Espinoza Jr, MD Signed: 10/13/2020 7:42 AM Workstation Name: [id number]
[2020-10-13 07:49] LABS: Basophils % (Auto) 0.5 % (0.0-1.8); Eosinophils % (Auto) 0.8 % (0.0-4.3); Hematocrit 41.8 % (35.5-45.6); Hemoglobin 13.9 gm/dl (11.8-15.2); Lymphocytes # (Auto) 1.4 K/mm3 (1.2-5.4); Lymphocytes % (Auto) 24.2 % (13.4-35.0); Mean Corpuscular HGB Conc 33 % (32-34); Mean Corpuscular Volume 89 fl (84-94); Monocytes # (Auto) 0.6 K/mm3 (0.0-0.8); Monocytes % (Auto) 10.6 % (0.0-7.3); Platelet Count 205 K/mm3 (140-440); Red Blood Count 4.72 M/mm3 (3.65-5.03); Red Cell Distribution Width 15.9 % (13.2-15.2)
[2020-10-13] MEDS ORDERED: ASPIRIN 325 MG TAB PO ONE (07:53)
--- NOTE | 2020-10-13 07:55 | Cat Scan Report ---
CTA NECK WITH CONTRAST HISTORY: Code stroke, altered mental status, dysarthria COMPARISON: None. TECHNIQUE: Routine CTA of the neck is performed. 3-D/MIP reformats were postprocessed. Percentage st enosis is determined by direct quantitative measurements of diseased internal carotid artery diameter compared with normal distal internal carotid artery reference segments or by criteria similar to ROXANNA CET where applicable. All CT scans at this location are performed using CT dose reduction for ALARA b y means of automated exposure control. CONTRAST: 100 ml of Omnipaque 350 FINDINGS: Aortic arch: No significant abnormality. Cervical vertebral arteries: No significant abnormality. Common carotid arteries: No significant abnormality. Cervical internal carotid arteries: No significant abnormality. Additional findings: There is minimal partially calcified plaque in the right carotid bulb. IMPRESSION: No evidence for hemodynamically significant stenosis, occlusion or dissection. Signer Name: Carl Espinoza Jr, MD Signed: 10/13/2020 7:50 AM Workstation Name: [id number]
[2020-10-13 07:58] LABS: INR 1.01 (0.87-1.13)
[2020-10-13 07:59] LABS: Creatine Kinase MB 2.1 ng/mL (0.0-4.0)
[2020-10-13 08:00] LABS: Alanine Aminotransferase 21 units/L (7-56); Albumin 3.9 g/dL (3.9-5); BUN/Creatinine Ratio 39; Blood Urea Nitrogen 47 mg/dL (9-20); Calcium 9.7 mg/dL (8.4-10.2); Hemolysis Index 3
--- NOTE | 2020-10-13 08:04 | Cat Scan Report ---
CTA HEAD WITH CONTRAST HISTORY: Code stroke, altered mental status, dysarthria COMPARISON: CT head performed earlier today TECHNIQUE: Routine non-contrast CT Head, CTA of the head and post-contrast CT Head are performed. 3-D /MIP reformats postprocessed. All CT scans at this location are performed using CT dose reduction for ALARA by means of automated e xposure control CONTRAST: 100 ml of Omnipaque 350 FINDINGS: CTA Head: Intracranial vertebral arteries: No significant abnormality. Basilar artery: No significant abnormality. Posterior cerebral arteries: No significant abnormality. Intracranial internal carotid arteries: No significant abnormality. Anterior cerebral arteries: No significant abnormality. Middle cerebral arteries: There is near complete occlusion in the left M3 segment within the left vladislav vian fissure which is best demonstrated on axial image 399, series 2. There is eventual complete occl usion of the left M4 segment. The right MCA is widely patent. Dural venous sinuses:Not optimally opacified. No significant abnormality. Additional findings: None. IMPRESSION: Complete or near-complete occlusion of the left M3 and M4 segments as described. This correlates with the abnormality seen on recent CT head without contrast. Signer Name: Carl Espinoza Jr, MD Signed: 10/13/2020 7:59 AM Workstation Name: [id number]
[2020-10-13 08:35] VITALS: BP 113/68
[2020-10-13 08:52] LABS: Partial Thromboplastin Time 27.5 Sec. (24.2-36.6); Thrombin Time 17.7 Sec. (15.1-19.6)
--- NOTE | 2020-10-13 09:11 | XRay Report ---
XR chest 1V ap INDICATION / CLINICAL INFORMATION: med clearance. COMPARISON: 09/30/2020 FINDINGS: SUPPORT DEVICES: None. HEART /PULMONARY VASCULATURE: Cardiac silhouette is accentuated. No significant pulmonary vasculature congestion. LUNGS / PLEURA: No significant pulmonary or pleural abnormality. No pneumothorax. ADDITIONAL FINDINGS: No significant additional findings. IMPRESSION: 1. No acute findings. Signer Name: Mj Carvalho MD Signed: 10/13/2020 9:07 AM Workstation Name: [id number]
[2020-10-13] MEDS ORDERED: SODIUM CHLORIDE 0.9% 1000 ML IV SOLN ONE (10:00)
--- NOTE | 2020-10-14 09:18 | Electrocardiograph Report ---
[facility] Test Date: 2020-10-13 Test Time: 07:42:42 Pat Name: RAUL HILL Department: Room: Gender: M [employer] Production: [place] : 1965 Requested By: STARR IVAN Order Number: [id number] Reading MD: Kar Bradford Measurements Intervals [place] Rate: 71 P: 36 [place]: 175 QRS: 5 QRSD: 183 T: 217 QT: 476 QTc: 517 Interpretive Statements Sinus rhythm Left bundle branch block ST elevation secondary to IVCD Compared to ECG 10/01/2020 11:17:19 No significant changes LAE Electronically Signed On 10-14-2020 9:18:11 EDT by Kar Bradford
== END 2020-10-13 09:23 ==
LOC: ED 06:52
DX: I63.9 Cerebral infarction, unspecified (principal); Z79.899 Other long term (current) drug therapy
CPT/HCPCS: 36415; 70450; 70496; 70498; 71045; 80053; 82140; 82550; 82553; 82962; 84484; 85025; 85610; 85670; 85730; 93005; 99284; J7030; Q9967; 80320; G0480